=== PATIENT | female | born 1965 | race Caucasian/White ===

== ENCOUNTER 2024-05-13 13:35 | Outpatient (CLI) | payer BC, SELFPAY ==
--- NOTE | 2024-05-13 14:26 | ECG_ITS ---
Test Date: 2024-05-13 14:35:20 Measurements Intervals [place] Rate: 66 P: 40 SC: 181 QRS: 43 QRSD: 97 T: 44 QT: 383 QTc: 403 Interpretive Statements SINUS RHYTHM CANNOT R/O SEPTAL INFARCT, AGE INDETERMINATE BASELINE ARTIFACT- I, II, III, AVR, AVL, AVF ABNORMAL ECG No previous ECG available for comparison Electronically Signed On 05-13-2024 15:33:06 3RD GRADE TEACHER by Hipolito Cortes D.O.
[2024-05-13 14:42] LABS: Basophils Absolute Auto 0.1 K/mm3 (0.0-0.1); Basophils Percent Auto 0.7 % (0.2-1.2); Eosinophils Percent Auto 0.5 % (0-4.4); Hematocrit 39.3 % (37.0-47.0); Hemoglobin 12.8 g/dL (12.0-15.0); Immature Granulocyte Absolute 0.01 K/mm3 (0.00-0.031); Immature Granulocyte Percent A 0.1 % (0-0.5); Lymphocytes Absolute Auto 1.64 K/mm3 (0.9-3.2); Lymphocytes Percent Auto 21.5 % (18.3-44.2); Mean Corpuscular HGB Conc 32.6 g/dl (32-36); Mean Corpuscular Hemoglobin 29.4 pg (26-34); Mean Corpuscular Volume 90.1 fl (80-100); Mean Platelet Volume 9.8 fl (7.4-10.4); Monocytes Absolute Auto 0.5 K/mm3 (0.1-0.6); Monocytes Percent Auto 6.3 % (2.6-8.5); Neutrophils Absolute Auto 5.4 K/mm3 (1.3-6.7); Neutrophils Percent Auto 70.9 % (45.5-73.1); Platelet Count Result 251 k/mm3 (150-375); Red Blood Count 4.36 M/mm3 (4.2-5.4); Red Cell Distribution Width 12.7 % (11.5-14.5); White Blood Count 7.6 K/mm3 (4.5-10.0)
[2024-05-13 14:54] LABS: Alanine Aminotransferase 21 U/L (6-35); Albumin Level 4.3 g/dL (3.5-5.1); Alkaline Phosphatase 77 U/L (38-126); Anion Gap 10 mmol/L (4-12); Aspartate Amino Transferase 24 U/L (14-36); Bilirubin,Total 0.7 mg/dL (0.2-1.3); Blood Urea Nitrogen 25 mg/dL (7-17); Calcium 9.4 mg/dL (8.4-10.2); Carbon Dioxide 28 mmol/L (22-30); Chloride 102 mmol/L (98-107); Estimated Glomerular Filt Rate > 60; Glucose 105 mg/dL (65-110); Potassium 3.6 mmol/L (3.4-5.0); Sodium 140 mmol/L (137-145)
[2024-05-13 15:02] LABS: Partial Thromboplastin Time 26.8 Seconds (22.3-36.8); Prothrombin Time 13.2 Seconds (11.1-14.7)
--- OUTSIDE RECORDS SUMMARY | 2024-05-13 15:40 | XMS_ITS | Clinical Summary ---
Author Organization [facility] Address [address] [place] [address] Care Team Providers Care Student Development Advisor Name Role Phone Unavailable Primary Care Provider Unavailabl e Encounters Date Type Department Care Team Description 05/07/2024 External Device Data [facility] ABSTRACTION Provider, Abstract 04/09/2024 External Device Data [facility] ABSTRACTION Provider, Abstract 04/01/2024 External Device Data [facility] ABSTRACTION Provider, Abstract from Last 3 Months Social History Tobacco Use Types Packs/Day Years Used Date Smoking Tobacco: Never Assessed Comments Unknown Sex and Gender Information Value Date Recorded Sex Assigned at Not on file 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 Gender Identity Not on file Sexual Orientation Not on file Plan of Treatment Health Maintenance Due Date Last Done Comments Pre-Diabetes and Diabetes Screening 1966 HEPATITIS B VACCINES (1 of 3 - 19+ 3-dose series) 1985 CERVICAL CANCER SCREENING 1996 BREAST CANCER SCREENING 2006 COLORECTAL SCREENING 09/17/2011 Colorectal Cancer Screening 09/17/2011 FIT-DNA Q 3 years 09/17/2011 FIT/FOBT Q 1 year 09/17/2011 Flex Sig/CT Colonography Q 5 years 09/17/2011 ZOSTER VACCINE (1 of 2) 2016 INFLUENZA VACCINE (#1) 2023 DTAP/TDAP/TD VACCINES (2 - T d or Tdap) 06/03/2032 06/03/2022 PNEUMOCOCCAL VACCINE 0-64 YEARS Aged Out No longer eligible based on patient's age to complete this topic [place] [address] [place] [address] BLUE ACCESS
--- OUTSIDE RECORDS SUMMARY | 2024-05-13 15:40 | XMS_ITS | Encounter Summary ---
Author Organization [facility] Address [address] [place] [address] Care Team Providers Care Nuclear Chemistry Technician Name Role Phone Chris Kohler MD Primary Care Provider [phone] Reason for Visit * Reason Onset Date Comments MEDICATION REFILL 02/24/2024 Encounter Details Date Type Department Care Team (Late st Contact Info) Description 02/24/2024 Refill [facility] - Family Medicine [address] [phone] Hillary Mcclure, [employer] [address] [phone] MEDICATION REFILL Social History Tobacco Use Types Packs/Day Years Used Date Smoking Tobacco: Never Smokeless Tobacco: Never Alcohol Use Standard Drinks/Week Comments Yes 0 (1 standard drink = 0.6 oz pur e alcohol) PHQ-2 Answer Date Recorded Patient Health Questionnaire-2 Score 0 01/25/2024 Sex and Gender Information Value Date Recorded Sex Assigned at Not on file Gender Identity Not on file Sexual Orientation Not on file documented as of this encounter Plan of Treatment Not on file documented as of this encounter Visit Diagnoses Diagnosis Right arm pain Pain in limb Acute pain of right shoulder documented in this encounter Care Teams Nuclear Chemistry Technician Relationship Specialty Start Date End Date Chris Kohler MD [address] [phone] PCP - General Family Medicine 07/10/22 documented as of this encounter
--- OUTSIDE RECORDS SUMMARY | 2024-05-13 15:40 | XMS_ITS | Data Portability ---
Author Organization [employer] , [facility] Address [address] [place] [address] Assessment No assessment recorded. Plan of Treatment Reminders Order Date Submit Date Provider Last Modified By Organization Details Last Modified Time Details Appointments None recorded. Lab urinalysis, dipstick 2022 023 [email or web address] 0 [facility], [address] [place], [address], 3 09:34:59 keesha wet prep 2022 023 [email or web address] 0 [facility], [address] [place], [address], 3 14:14:18 HPV E6+E7 mRNA, qualitative PCR, cervix 2022 023 [facility], [address] [place], [address], 3 15:30:59 pap, LB 2022 023 [facility], [address] [facility], [place], [address], 3 17:34:33 Referral None recorded. Procedures None recorded. Surgeries None recorded. Imaging MAMMO, screening, digital, bilateral 2023 024 0 [facility] [address] [place] [address], [place], [address], 08:57:20 Medication Orders None recorded. Patient TargetsNo targets recorded. Patient Instructions Encounter Date Encounter Id Patient Instructions Last Modified By Organization Details Last Modified Time 06/14/2022 [id number] A healthy lifestyle: care instructions [email or web address] Not available 06/14/2022 10:58:17 calcium and vitamin D combination [email or web address] Not available 06/14/2022 10:58:17 depression (wome n only) [email or web address] Not available 06/14/2022 10:58:17 eating healthy foods: care instructions [id number] Not available 06/14/2022 10:58:17 exercise program : getting started [email or web address] Not available 06/14/2022 10:58:17 protect bone wit h calcium and vitamin D [email or web address] Not available 06/14/2022 10:58:17 osteoporosis education [email or web address] Not available 06/14/2022 10:58:17 breast self-exam : care instructions [id number] Not available 06/14/2022 10:58:17 02/12/2024 [id number] A healthy lifestyle: care instructions [email or web address] Not available 02/12/2024 13:46:44 calcium and vitamin D combination [email or web address] Not available 02/12/2024 13:46:44 depression (wome n only) [id number] Not available 02/12/2024 13:46:44 eating healthy foods: care instructions [email or web address] Not available 02/12/2024 13:46:44 exercise program : getting started [email or web address] Not available 02/12/2024 13:46:44 protect bone wit h calcium and vitamin D [id number] Not available 02/12/2024 13:46:44 osteoporosis education [email or web address] Not available 02/12/2024 13:46:44 breast self-exam : care instructions [email or web address] Not available 02/12/2024 13:46:44 Reason for Referral None Reported. Results Created Date Observation Date Name Description Value Unit Range Abnormal Flag Note LastModifiedBy Organization Detail LastModifiedTime 06/15/19 23 06/15/2022 HPV HIGH RISK HPV high risk Negati ve negati ve normal The HPV High Risk assay is inten ded for use as co-te sting with cytol ogy and not as a subst itute for regul ar cervi lio cytol ogy scree luh. This assay is not inten ded for use as a scree luh devic e for women under age 30 with skinny l cervi lio cytol ogy. Not Available [facility] [address] [place], [address], 06/15/2022 15:30:59 06/15/19 23 06/21/2022 THINP REP TIS PAP clinical information: normal None given Not Available [address] [place], [address], 06/21/2022 17:34:33 06/15/19 23 06/21/2022 THINP REP TIS PAP LMP: normal NONE GIVEN Not Available [address] [place], [address], 06/21/2022 17:34:33 06/15/19 23 06/21/2022 THINP REP TIS PAP prev. Pap: normal NONE GIVEN Not Available [address] [place], [address], 06/21/2022 17:34:33 06/15/19 23 06/21/2022 THINP REP TIS PAP prev. BX: normal NONE GIVEN Not Available [address] [place], [address], 06/21/2022 17:34:33 06/15/19 23 06/21/2022 THINP REP TIS PAP source: normal Cervi x Not Available [address] [place], [address], 06/21/2022 17:34:33 06/15/19 23 06/21/2022 THINP REP TIS PAP statement of adequacy: normal Satis facto ry for evalu ation . Endoc ervic al/tr ansfo rmati on zone compo nent prese nt. Age and/o r menst rual statu s not provi ded Not Available [address] [place], [address], 06/21/2022 17:34:33 06/15/19 23 06/21/2022 THINP REP TIS PAP interpretati on/result: normal Negat nanda for intra epith elial lesio n or jeanette manjarrez . Not Available [address], [place], [address], 06/21/2022 17:34:33 06/15/19 23 06/21/2022 THINP REP TIS PAP comment: normal This Pap test has been evalu ated with compu ter amanda tani techn ology . Not Available [address] , [place], [address], 06/21/2022 17:34:33 06/15/19 23 06/21/2022 THINP REP TIS PAP cytotechnolo gist: normal BKA, CT( CP) CT scree luh locat ion: [address] [place] [address] Not Available [address], [place], [address], 06/21/2022 17:34:33 06/15/19 23 06/21/2022 THINP REP TIS PAP comment EXPLA NATOR Y NOTE: The Pap is a scree luh test for cervi lio cance r. It is not a diagn ostic test and is subje ct to false negat nanda and false posit nanda resul ts. It is most relia ble when a satis facto ry sampl e, regul su obtai debra, is submi tted with relev ant clini lio findi ngs and histo ry, and when the Pap resul t is evalu ated along with histo jamshid and curre nt clini lio infor matio n. Not Available [address] , [place], [address], 06/21/2022 17:34:33 06/15/19 23 06/14/2022 VAGIN ITIS PANEL vaginitis panel Not Available [facility] [address] [place], [address], 06/30/2022 15:54:57 06/15/19 23 06/14/2022 keesha wet prep Hyphae Presen t Not Available [address], [address], 06/14/2022 14:13:54 06/15/19 23 06/14/2022 urina lysis , dipst ick Leukocytes Negati ve Not Available [address], [address], 06/12/2022 14:36:22 06/15/19 23 06/14/2022 urina lysis , dipst ick Nitrite negati ve Not Available [address], [address], 06/12/2022 14:36:22 06/15/19 23 06/14/2022 urina lysis , dipst ick Urobilinogen 1 Not Available [address], [address], 06/12/2022 14:36:22 06/15/19 23 06/14/2022 urina lysis , dipst ick Protein Negati ve Not Available [address], [address], 06/12/2022 14:36:22 06/15/19 23 06/14/2022 urina lysis , dipst ick pH 5.0 Not Available [address], [address], 06/12/2022 14:36:22 06/15/19 23 06/14/2022 urina lysis , dipst ick Blood Negati ve Not Available [address], [address], 06/12/2022 14:36:22 06/15/19 23 06/14/2022 urina lysis , dipst ick Specific [place] 1.005 Not Available [address], [address], 06/12/2022 14:36:22 06/15/19 23 06/14/2022 urina lysis , dipst ick Ketone Negati ve Not Available [address], [address], 06/12/2022 14:36:22 06/15/19 23 06/14/2022 urina lysis , dipst ick Bilirubin Negati ve Not Available [address], [address], 06/12/2022 14:36:22 06/15/19 23 06/14/2022 urina lysis , dipst ick Glucose Negati ve Not Available [address], [address], 06/12/2022 14:36:22 06/15/19 23 06/14/2022 urina lysis , dipst ick Appearance Clear Not Available [address], [address], 06/12/2022 14:36:22 06/15/19 23 06/14/2022 urina lysis , dipst ick Color Yellow Not Available [address], [address], 06/12/2022 14:36:22 Result Notes None recorded. Problems No Known Problems Procedures Surgical History Date Name Laterality Status Provider Name and Address Organization Details Recorded Time 01/18/20 Date of Last Colonoscopy completed Omaira Sanchez [facility] 02/12/2024 12:25:56 06/15/19 23 Date of Last Pap Smear completed Omaira Sanchez [facility] 02/12/2024 12:25:25 Imaging Results None recorded. Procedure Notes None recorded. Medical Equipment None Reported. Allergies Allergen ID Allergen Name Allergen Category Reaction Reaction Severity Criticality Documentation Date Start Date Code Code System Note Provider Name and Address Organization Details Recorded Time 523834 Product containin g penicilli n (product) medicatio n Not available Not available Not available 01/07/20212016 59742 8001 SNOMED Sever ity: Moder ate; Not Available Not Available Not Available Medications Name Sig Start Date Stop Date Status Note LastModified by Organization Details LastModified Time prednison e 10 mg tablet TAKE 3 TABLETS BY MOUTH ONCE DAILY FOR 4 DAYS AND 2 ONCE DAILY FOR 4 DAYS AND 1 ONCE DAILY FOR 4 DAYS 02/07 completed Not Available Not Available Not Available fluconazo le 150 mg tablet TAKE 1 TABLET BY MOUTH NOW THEN REPEAT IN 72 HOURS 02/07 completed Not Available Not Available Not Available Lotrisone 1 %-0.05 % topical cream Apply a small amount to vulvar area BID 05/26 completed Lotrison e 0.05%/1% Cream RxNorm: 596549 Allow Substitu tion: True Refill Denied: No Not Available Not Available Not Available clobetaso l 0.05 % topical cream Apply thin film to affected area bid 10/17 completed Clobetas ol Propiona te 0.05% Cream Allow Substitu tion: True Refill Denied: No Not Available Not Available Not Available sulfameth oxazole 800 mg-trimet hoprim 160 mg tablet TAKE 1 TABLET BY MOUTH TWICE DAILY FOR 3 DAYS 06/14 completed Not Available Not Available Not Available baclofen 10 mg tablet TAKE 1 TABLET BY MOUTH THREE TIMES DAILY MAY CAUSE DROWSINE SS 02/11 completed Not Available Not Available Not Available clobetaso l 0.05 % topical foam 06/14 completed Clobetas ol Propiona te Allow Substitu tion: True Refill Denied: No Refill DateOccu rred: 08/24/19 17 Not Available Not Available Not Available clobetaso l 0.05 % topical ointment 06/14 completed Clobetas ol Propiona te Allow Substitu tion: True Refill Denied: No Refill DateOccu rred: 08/24/19 17 Not Available Not Available Not Available methylpre dnisolone 4 mg tablets in a dose pack TAKE BY MOUTH DIRECTED ON INSIDE OF PACKAGE 02/11 completed Not Available Not Available Not Available clobetaso l 0.05 % lotion 07/19 completed Clobetas ol Propiona te Allow Substitu tion: True Refill Denied: No Refill DateOccu rred: 08/24/19 17 Not Available Not Available Not Available estradiol 08/23 completed Estradio l Allow Substitu tion: True Refill Denied: No Refill Note: didn't get medicati on Refill DateOccu rred: 08/24/19 17 Not Available Not Available Not Available Provera 08/23 completed Provera Allow Substitu tion: True Refill Denied: No Refill Note: Didn't take it Refill DateOccu rred: 08/24/19 17 Not Available Not Available Not Available Duavee 08/23 completed Duavee Allow Substitu tion: True Refill Denied: No Refill Note: entered wrong med Refill DateOccu rred: 08/24/19 17 Not Available Not Available Not Available Vitals Date Recorded Body height Body mass index (BMI) Body weight Systolic blood pressure Diastolic blood pressure Provider Name and Address Organization Details Last Updated DateTime 06/14/2022 170.18 cm 26.9 kg/m2 93444.89 g 122 mm[Hg] 80 mm[Hg] Nissa Mcdonald [facility] 3 09:40:13 Date Recorded Body weight Body mass index (BMI) Body height Systolic blood pressure Diastolic blood pressure Provider Name and Address Organization Details Last Updated DateTime 02/12/2024 10472.6 3 g 28.2 kg/m2 170.18 cm 127 mm[Hg] 70 mm[Hg] Omaira Sanchez [facility] 4 12:29:11 Social History Question Answer Notes LastModified by Organizat ion Details LastModified Time Tobacco Smoking Status Never Smoker Omaira Sampsonuog null, [facility] 02/12/2024 12:24:20 What Is Your Level Of Alcohol Consumption? Occasional Information not available 02/12/2024 If You Are , What Was Your Level Of Alcohol Consumption Prior To ? None Information not available 02/12/2024 How Many Years Have You Consumed Alcohol? 10 Information not available 02/12/2024 Are You Blind Or Do You Have Difficulty Seeing? No Information not available 02/12/2024 Are You Currently Employed? Yes Information not available 02/12/2024 Are You Deaf Or Do You Have Serious Difficulty Hearing? No Information not available 02/12/2024 What Type Of Diet Are You Following? REGULAR Information not available 02/12/2024 How Many Children Do You Have? 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 Information not available 06/12/2022 Are You Sexually Active? Yes [email or web address] Information not available 06/12/2022 Do You Use Any Illicit Or Recreational Drugs? No Information not available 02/12/2024 Sex: Unknown Functional Status Question Answer Note LastModified by Organization D etails LastModified Time What is your exercise level? Moderate Information not available 02/12/2024 Mental Status None recorded. Family History Relationship Description Onset Age of this Age Resolved Age Notes LastModified by Organization Details LastModified Time Father No current problems or disability [email or web address] Not available 05/18 09:40:58 Mother No current problems or disability [email or web address] Not available 05/18 09:40:58 Medical History Condition Response Other Cancer N High Blood Pressure N Colon Cancer N Cytomegalovirus N Hyperthyroidism N Breast Cancer N Herpes (HSV) N Blood Transfusion N MRSA N Lung Cancer N Hypothyroidism N Depression N Incontinence N Panic Attacks N Neurological Disorder N Deep Vein Thrombosis N Anxiety Disorder N Autoimmune disease N Arthritis N Tuberculosis/Positive PPD N Shingles N Polycystic Ovarian Syndrome N Infertility N Cervical Cancer N Chlamydia N Hematuria N Stroke N Varicosities N Crohn's Disease N Seasonal allergies N Alzheimer's/Dementia N COPD/Emphysema N HPV/Genital Warts N Endometriosis N IBS (Irritable Bowel Syndrome) N History of Abnormal Pap N High Cholesterol N Liver Disease N Kidney Infection N Fibromyalgia N Ulcer N Kidney Disease N HIV N Gallbladder disease N Sickle Cell Disease/Trait N Von Willebrand disease N ADD/ADHD N Eating Disorder N Anemia N Diabetes Mellitus (non-insulin dependent ) N Ovarian Problems N Multiple Sclerosis N Gonorrhea N Frequent Urinary Tract infections N Osteopenia N Headaches/migraines N GERD (reflux) N Ovarian Cancer N Diabetes (insulin dependent) N Seizures/Epilepsy N Breast Problems N Fibroids N Heart Attack N Asthma N Lupus N Endometrial Cancer N Rubella N Blood Clotting Disorder N Bipolar Disorder N Diabetes Mellitus (during ) N Ulcerative Colitis N Hepatitis N Heart Disease N Pulmonary Embolism N RPR N Chicken Pox N Osteoporosis N Gynecological History Statement/Question Response Flow Moderate Date of last HPV 06/14/2022 Date of LMP 01/17/2011 Duration of Flow (days) 6 Most Recent Mammogram Current Control Method Menopause Age at Menarche 15 If Post Menopausal, Age at Menopause 51 Date of Last Colonoscopy 01/17/2023 Frequency of Cycle (Q days) 30 Date of Last Pap Smear 06/14/2022 Obstetrics History GPAL:G 4 P 3 0 1 3 Type Value Full Term 3 Spontaneous 1 Living 3 Total 4 Past Encounters Encounter ID Performer Location Encounter Start Date Encounter Closed Date Diagnosis/Indication Diagnosis SNOMED-CT Code Diagnosis ICD10 Code Diagnosis Note [id number] ANNY Wisdom [address] [address] 06/14/2022 09:24:21 06/14/2022 10:09:26 Dysuria 37715650 R30.0 Urine dip negative Gynecologi c examination 99057208 Z01.419 56y.o. here for annual exam. - Pap today , discussed natural course of HPV infection, no new exposures. - Routine labs done with PCP - Mammo encouraged to have performed - Colonoscop y Cologard - DEXA at age 66 - RTO for annual or PRN Screening for malignant neoplasm of cervix 562885722 Z12.4 ASCCP guidelines reviewed with pt. Pap collected and sent. Further POC pending lab result review. Pt states understand ing of POC. Screening for osteoporosis 709434014 Z13.820 Screening mammography of bilateral breasts 1432524682 38132 Z12.31 Client advised to perform self-breas t exams and report any changes. Yeast detected 970528738 R89.5 Proceed with taking 2nd tablet rx'd by Urgent Care - Reviewed vulvar hygiene: avoid tight or moist clothing, soaps, Vagisil and other wipes, cotton underwear only and sleep without, unscented detergent - Discussed potential for Rephresh gel if neg test - Start probiotic - RTO for annual or as needed [id number] ANNY Wisdom [facility] [address] [place] [address] 02/12/2024 12:09:55 02/12/2024 12:45:29 Gynecologic examination 37849159 Z01.419 58y.o. here for annual exam.- Pap today , discussed natural course of HPV infection, no new exposures. - Routine labs done with PCP- Mammo- Colonoscop y Cologard- DEXA at age 66- RTO for annual or PRN Screening for osteoporosis 558926949 Z13.820 Depression screening 171 918312 Z13.31 see screening intake tool Screening mammography of bilateral breasts 1592466546 27552 Z12.31 Client advised to perform self-breas t exams and report any changes. Midline cystocele 099436 [address] N81.[address] Maury Patterson, Urologist for consult Health Concerns Section Related Observation LastModified by Organization Detai ls LastModified Time None Recorded Concern Status LastModified by Organization Details LastModified Time None Recorded Advance Directives Directive None Recorded Payers Encounter Date Sequence Insurance Name Policy Number Policy Mendez Covered Member ID Mendez Member ID Guarantor Name 06/14/2022 1 [employer] 105 Sandi Odonnell [id number] Sandi Odonnell 02/12/2024 1 [place] 105 Sandi Odonnell [id number] Sandi Odonnell Notes Date Note Type Note Provider Name and Address Organization Details Recorded Time 06/14/2022 text/html Annual GYNReport ed bypatient.Menstrua l cycle:Normal menses Urinary symptoms:No hematuria; No incontinence Vulva:No genital lesion Vagina:Normal vaginal discharge;Vaginal itching Breast:No breast pain; No breast lump; No nipple discharge Sexual complaints:No sexual complaints; No pain during intercourse; Normal libido Menopausal Symptoms:No menopausal symptoms; Normal vaginal lubrication Psychological symptoms:No depression; No anxiety; No PMDD Sandi is here for her AEX, as well as a f/u to her recent ER and Urgent Care visit. She presented to ER. On 06/03/22 she was seen in ER and rx'd Bactrim DS x 3 days for a UTI. She then was seen in Urgent Care 4 days ago and tx'd for a yeast infection with Fluconazole. Her dysuria has resolved, however, she still feels vaginal irritation. She denies odor/discharge. she is due for her mammogram. She in the process of Cologard ANNY Wisdom [address] [place], [address], [facility] 06/14/2022 14:15:22 02/12/2024 text/html Annual GYNReport ed bypatient.Urinary symptoms:No hematuria; No incontinence Vulva:No genital lesion Vagina:Normal vaginal discharge Breast:No breast pain; No breast lump; No nipple discharge Sexual complaints:No sexual complaints; No pain during intercourse; Normal libido Menopausal Symptoms:No menopausal symptoms; Normal vaginal lubrication Psychological symptoms:No depression; No anxiety; No PMDD Sandi is here for her AEXHer last pap 06/14/22Her last mammogram was: neverShe is UTD on CologardShe currently c/o the possibility of a cystocele ANNY Wisdom [address] [facility], [place], [address], [facility] 02/12/2024 13:50:32 OBGyn Episode No OBEpisode recorded.
--- OUTSIDE RECORDS SUMMARY | 2024-05-13 15:40 | XMS_ITS | Clinical Summary ---
Author Organization [facility] Address [address] [facility] [place] [address] Care Team Providers Care Assistant Produce Manager Name Role Phone Chris Kohler MD Primary Care Provider [phone] Source Comments [facility],non-owned Affiliates and Associated Physician Practices is amultiple site organization consisting of ambulatory clinics and hospital sitesin [place], [place], [place] and [place]. This disclosure is being madepursuant to the Care Everywhere program and may not contain all information available regarding this patient. Last updated 17.[facility] Allergies Active Allergy Reactions Criticality Noted Date Comments Penicillins Urticaria,Rash Medium 04/30/2020 Medications * Be aware that medications may not be up to date on this document. Alwaysverify current medications with the patient. Medication Sig Dispensed Refills Start Date End Date Status methylPREDNISolone (Medrol Dosepak) 4 MG tabletIndications:Ri ght arm pain,Acute pain of right shoulder Take by mouth as directed Take as directed by mouth per package instructions. 21 tablet 01/25/2024 Active baclofen (Lioresal) 10 MG tabletIndications:Ri ght arm pain,Acute pain of right shoulder Take 1 (one) tablet by mouth 3 times daily May cause drowsiness. 30 tablet 02/25/2024 Active Active Problems Problem Noted Date Diagnosed Date Hypothyroidism 01/08/2021 Seasonal allergies 08/08/2017 Encounters Date Type Department Care Team Description 02/24/2024 Refill [facility] Family Medicine [address] [facility], [facility] [address] [place] [phone] Hillary Mcclure, CASTER HELPER-BATTERY TESTER AND REPAIRER MEDICATION REFILL 02/24/2024 Refill [facility] Family [address], [address] [place] [phone] Hillary Mcclure, CASTER HELPER-BATTERY TESTER AND REPAIRER MEDICATION REFILL from Last 3 Months Immunizations Name Administration Dates Next Due TDAP, HISTORIC VACCINE 06/03/2022 Family History Medical History Relation Name Comments None Known Father Thyroid Disease Mother Relation Name Status Comments Father Alive Mother Alive Social History Tobacco Use Types Packs/Day Years Used Date Smoking Tobacco: Never Smokeless Tobacco: Never Tobacco Cessation:Counseling Given: Not Answered Alcohol Use Standard Drinks/Week Comments Yes 0 (1 standard drink = 0.6 oz pur e alcohol) PHQ-2 Answer Date Recorded Patient Health Questionnaire-2 Score 0 01/25/2024 Sex and Gender Information Value Date Recorded Sex Assigned at Not on file Gender Identity Not on file Sexual Orientation Not on file Last Filed Vital Signs Vital Sign Reading Time Taken Comments Blood Pressure 123/82 01/25/2024 9:34 AM DIRECTOR OF ENROLLMENT Pulse 66 01/25/2024 9:34 AM DIRECTOR OF ENROLLMENT Temperature 36.7 C (98.1 F) 04/30/2020 9:21 AM DIRECTOR OF ENROLLMENT Respiratory Rate 12 06/13/2022 8:38 AM CDT Oxygen Saturation 99% 01/25/2024 9:34 AM DIRECTOR OF ENROLLMENT Inhaled Oxygen Concentration - - Weight 83.8 kg (184 lb 12.8 oz) 01/25/2024 9:34 AM DIRECTOR OF ENROLLMENT Height 170.2 cm (5' 7 ) 06/13/2022 8:38 AM CDT Body Mass Index 28.94 06/13/2022 8:38 AM CDT Plan of Treatment Health Maintenance Due Date Last Done Comments COLON MONITORING 1966 COLONOSCOPY - COLON CA SCREENING 1966 CT COLONOGRAPHY - COLON CA SCREENING 1966 FIT - COLON CA SCREENING 1966 FLEX SIG - COLON CA SCREENING 1966 MAMMOGRAM 1966 HIV SCREENING 1981 HEPATITIS C SCREENING 09/11/1984 HEPATITIS B VACCINE (1 of 3 - 19+ 3-dose series) 1985 PNEUMOCOCCAL VACCINE 50+ (1 of 1 - PCV) 2016 ZOSTER VACCINE (1 of 2) 2016 COVID-19 VACCINE ( - season) 2023 DEPRESSION SCREENING 03/19/2024 06/19/2023, 06/14/19 23 INFLUENZA VACCINE (#1) 2024 Postp oned from 11/18/2023 (Patient Directed) PAP SMEAR 06/14/2025 06/14/2022 (Done Outside Per Report), 01/17/2018 (Done Outside Per Patient) COLOGUARD (AGES 45-75) - COLON CA SCREENING 06/20/2025 06/20/2022 Colorectal Cancer Screening 06/20/2025 LIPID TESTING 06/14/2027 06/13/2022 DTAP/TDAP/TD VACCINES (2 - Td or Tdap) 06/03/2032 06/03/2022 HIB VACCINE Aged Out No longer eligi ble based on patient's age to complete this topic HPV VACCINE Aged Out No longer eligi ble based on patient's age to complete this topic MENINGOCOCCAL (Group B) VACCINE Aged Out No longer eligible b ased on patient's age to complete this topic MENINGOCOCCAL VACCINE Aged Out No allison felix eligible based on patient's age to complete this topic Procedures Procedure Name Priority Date/Time Associated Diagnosis Comments COLOGUARD TEST Routine 06/20/2022 6:10 AM CDT Screening for malignant neoplasm of colon LIPID PROFILE Routine 06/13/2022 9:01 AM CDT Well adult exam from Last 3 Months or Most Recently Relevant to Health Maintenance Results * [id number] COLOGUARD TEST *Associate with Z12.11 OR Z12.12 Dx Codes* (06/20/2022 6:10 AM CDT) Cologuard Negative Negative [facility] Comment: NEGATIVE TEST RESULT. A negative Cologuard result indicates a low likelihood that a colorectal cancer (CRC) or advanced adenoma (adenomatous polyps with more advanced pre-malignant features) is present. The chance that a person with a negative Cologuard test has a colorectal cancer is less than 1 in 1500 (negative predictive value >99.9%) or has an advanced adenoma is less than 5.3% (negative predictive value 94.7%). These data are based on a prospective cross-sectional study of 10,000 individuals at average risk for colorectal cancer who were screened with both Cologuard and colonoscopy. (Luis Alberto Tsai al, N Engl J Med 2014;370(14):0679-6974) The normal value (reference range) for this assay is negative. COLOGUARD RE-SCREENING RECOMMENDATION: Periodic colorectal cancer screening is an important part of preventive healthcare for asymptomatic individuals at average risk for colorectal cancer. Following a negative Cologuard result, the [place] Cancer Society and U.S. Multi-Society Task Force screening guidelines recommend a Cologuard re-screening interval of 3 years. References: [place] Cancer Society Guideline for Colorectal Cancer Screening: https://www.cancer.org/cancer/kzruc-xytbqi-oaubuw/rfynaqhgm-ejbjlhxkz-hvtwpkv/ acs-recommendations.html.; Johny DK, Nirmal PHAM, Manuela ElmoreK, Colorectal Cancer Screening: Recommendations for Physicians and Patients from the U.S. Multi-Society Task Force on Colorectal Cancer Screening , Am J Gastroenterology 2017; 112:8662-7747. TEST DESCRIPTION: Composite algorithmic analysis of stool DNA-biomarkers with hemoglobin immunoassay. Quantitative values of individual biomarkers are not reportable and are not associated with individual biomarker result reference ranges. Cologuard is intended for colorectal cancer screening of adults of either sex, 45 years or older, who are at average-risk for colorectal cancer (CRC). Cologuard has been approved for use by the U.S. FDA. The performance of Cologuard was established in a cross sectional study of average-risk adults aged 50-84. Cologuard performance in patients ages 45 to 49 years was estimated by sub-group analysis of near-age groups. Colonoscopies performed for a positive result may find as the most clinically significant lesion: colorectal cancer [4.0%], advanced adenoma (including sessile serrated polyps greater than or equal to 1cm diameter) [20%] or non- advanced adenoma [31%]; or no colorectal neoplasia [45%]. These estimates are derived from a prospective cross-sectional screening study of 10,000 individuals at average risk for colorectal cancer who were screened with both Cologuard and colonoscopy. (Luis Alberto Reyes, N Engl J Med 2014;370(14):9550-3269.) Cologuard may produce a false negative or false positive result (no colorectal cancer or precancerous polyp present at colonoscopy follow up). A negative Cologuard test result does not guarantee the absence of CRC or advanced adenoma (pre-cancer). The current Cologuard screening interval is every 3 years. ([place] Cancer Society and U.S. Multi-Society Task Force). Cologuard performance data in a 10,000 patient pivotal study using colonoscopy as the reference method can be accessed at the following location: www.[employer]/results. Additional description of the Cologuard test process, warnings and precautions can be found at www.[employer].com. Stool STOOL SPECIMEN / Unknown 06/20/2022 6:10 AM CDT 06/21/2022 4:07 PM CDT Hillary Mcclure CASTER HELPER-BATTERY TESTER AND REPAIRER LA B - CHEMISTRY ORDERABLES Performing Organization Address City/State/[facility] Co de Phone Number [facility] [address] [place] [address] [facility] [address] [place] [address] * LIPID PROFILE (06/13/2022 9:01 AM CDT) Cholesterol 176 <200 mg/dL [facility] HDL Cholesterol 64 > OR = 50 mg/dL [facility] Triglycerides 90 <150 mg/dL [facility] LDL Calculated 94 mg/dL (calc) [facility] Comment: Reference range: <100 Desirable range <100 mg/dL for primary prevention; <70 mg/dL for patients with CHD or diabetic patients with > or = 2 CHD risk factors. LDL-C is now calculated using the Nestor-Nikita calculation, which is a validated novel method providing better accuracy than the Friedewald equation in the estimation of LDL-C. Nestor JACOBS et al. CHRISTOPHER. 2013;310(19): 5908-8339 (http://education.[employer].com/faq/GLE197) CHOL/HDLC RATIO 2.8 <5.0 (calc) [facility] Non HDL Cholesterol 112 <130 mg/dL (calc) [facility] Comment: For patients with diabetes plus 1 major ASCVD risk factor, treating to a non-HDL-C goal of <100 mg/dL (LDL-C of <70 mg/dL) is considered a therapeutic option. Test Performed at: [facility] [address] [place] [address] VIPUL GARDNER MD Blood BLOOD SPECIMEN / Unknown 06/13/2022 9:01 AM CDT 06/13/2022 9:01 AM CDT Hillary Emmanuelle Mcclure CASTER HELPER-BATTERY TESTER AND REPAIRER LA B - CHEMISTRY ORDERABLES [facility] [address] [place] [address] from Last 3 Months or Most Recently Relevant to Health Maintenance Care Teams Assistant Produce Manager Relationship Specialty Start Date End Date Chris Kohler MD [address] [phone] PCP - General Family Medicine 07/10/22
--- OUTSIDE RECORDS SUMMARY | 2024-05-13 15:40 | XMS_ITS | Data Portability ---
Author Organization [place] [facility], [facility] Address [address] [place] [phone] Assessment No assessment recorded. Plan of Treatment Reminders Order Date Submit Date Provider Last Modified By Organization Details Last Modified Time Details Appointments None recorded. Lab urinalysis, dipstick, auto 2022 023 [facility], [address] [place] [address], [phone], 17:01:37 culture, urine + sensitivity [address] Registration Dept[address] [place] [address], [address], 09:28:52 Referral None recorded. Procedures None recorded. Surgeries None recorded. Imaging None recorded. Medication Orders fluconazole 150 mg tablet 2022 023 [facility] [address] [place], [address], 17:00:39 Patient TargetsNo targets recorded. Patient InstructionsNo instructions recorded. Reason for Referral None Reported. Results Created Date Observation Date Name Description Value Unit Range Abnormal Flag Note LastModifiedBy Organization Detail LastModifiedTime 03/22/19 22 03/22/2021 rapid SARS CoV 2 Ag, QL IA, respi rator y speci men covid-19 RNA Positi ve negati ve abnormal Not Available Not Available 03/22/2021 11:59:16 06/12/19 23 06/11/2022 urina lysis , dipst ick, auto Leukocytes (reference Rage: Negative roger/mcg) Negati ve Not Available [address], [address], 06/11/2022 16:36:26 06/12/19 23 06/11/2022 urina lysis , dipst ick, auto Nitrite (reference rage: Negative mg/dL) negati ve Not Available [address], [address], 06/11/2022 16:36:26 06/12/19 23 06/11/2022 urina lysis , dipst ick, auto Urobilinogen (reference range: 0.2-1 ng/dL) 0.2 Not Available [address], [address], 06/11/2022 16:36:26 06/12/19 23 06/11/2022 urina lysis , dipst ick, auto Protein (reference range: negative mg/dL): Negati ve Not Available [address], [address], 06/11/2022 16:36:26 06/12/19 23 06/11/2022 urina lysis , dipst ick, auto pH (reference range: 5-7) 5.5 Not Available [address], [address], 06/11/2022 16:36:26 06/12/19 23 06/11/2022 urina lysis , dipst ick, auto Blood (reference range: negative Negati ve Not Available [address], [address], 06/11/2022 16:36:26 06/12/19 23 06/11/2022 urina lysis , dipst ick, auto Specific [place] (reference range 1.005-1.030) 1.025 Not Available [address], [address], 06/11/2022 16:36:26 06/12/19 23 06/11/2022 urina lysis , dipst ick, auto Ketone (reference range: negative mg/dL) Negati ve Not Available [address], [address], 06/11/2022 16:36:26 06/12/19 23 06/11/2022 urina lysis , dipst ick, auto Bilirubin (reference range: negative mg/dL) Negati ve Not Available [address], [address], 06/11/2022 16:36:26 06/12/19 23 06/11/2022 urina lysis , dipst ick, auto Glucose (reference range: negative mg/dL) Negati ve Not Available [address], [address], 06/11/2022 16:36:26 06/12/19 23 06/11/2022 urina lysis , dipst ick, auto Appearance Slight ly Cloudy Not Available [address], [address], 06/11/2022 16:36:26 06/12/19 23 06/11/2022 urina lysis , dipst ick, auto Color Yellow Not Available [address], [address], 06/11/2022 16:36:26 Result Notes None recorded. Problems Name Problem SNOMED Code Status Onset Date Resolution Date Notes Provider Name and Address Organization Details Recorded Time Dysuria 03361515 [facility] 16:36:28 Candidiasis of vagina 65149346 Active 2022 Deidre Bay Iyer RN TRANSPLANT [address] [place] [address], [address] , [facility] 3 16:57:04 Menopausal syndrome 060643956 Active Not Available [facility] 3 17:07:27 Seasonal allergy 714139176 Active 2017 Not Available [facility] 3 17:07:27 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 Medical Equipment None Reported. Allergies Allergen ID Allergen Name Allergen Category Reaction Reaction Severity Criticality Documentation Date Start Date Code Code System Note Provider Name and Address Organization Details Recorded Time 234919 Product containin g penicilli n (product) medicatio n rash Not available Not available 03/26/2022 93704 8001 SNOMED Not Available [facility] 3 17:08:22 Medications Name Sig Start Date Stop Date Status Note LastModified by Organization Details LastModified Time prednisone 10 mg tablet TAKE 4 TABLETS BY MOUTH EVERY DAY FOR 3 DAYS THEN 3 TABLETS EVERY DAY FOR 3 DAYS THEN 2 TABLETS EVERY DAY FOR 3 DAYS THEN 1 TABLET EVERY DAY 01/08 completed Not Available Not Available Not Available azithromyci n 250 mg tablet TAKE 2 TABLETS (500 MG) BY ORAL ROUTE ONCE DAILY FOR 1 DAY THEN 1 TABLET (250 MG) BY ORAL ROUTE ONCE DAILY FOR 4 DAYS 06/11 completed Not Available Not Available Not Available fluconazole 150 mg tablet Take 1 tablet every 72 hours by oral route. 2022 active Not Available Not Available Not Avai lable hydrocodone 5 mg-acetamin ophen 325 mg tablet TAKE 1 TABLET BY MOUTH EVERY 4 TO 6 HOURS NEEDED FOR POSTOPERA TIVE PAIN 01/08 completed Not Available Not Available Not Available Provera 2.5 mg tablet Take 1 tablet every day by oral route. 06/11 completed Not Available Not Available Not Available clobetasol 0.05 % topical cream apply a thin layer to area once or twice a week 12/04 completed Not Available Not Available Not Available Kenalog 40 mg/mL suspension for injection Take 2 mL by injection route. 01/07 completed Not Available Not Available Not Available methocarbam ol 750 mg tablet TK 1 T PO Q 6 H FOR 10 DAYS PRN 12/04 completed Not Available Not Available Not Available baclofen 10 mg tablet TAKE 1 (ONE) TABLET BY MOUTH 3 TIMES DAILY MAY CAUSE DROWSINES S. 01/08 completed Not Available Not Available Not Available levothyroxi ne 50 mcg tablet TAKE 1 TABLET BY MOUTH EVERY DAY 01/08 completed Not Available Not Available Not Available cephalexin 500 mg capsule 12/04 completed Not Available Not Available Not Available clotrimazol e-betametha sone 1 %-0.05 % topical cream APPLY A SMALL AMOUNT TO VULVAR AREA BID UTD 06/14 completed Not Available Not Available Not Available estradiol 0.5 mg tablet Take 1 tablet every day by oral route. 06/11 completed Not Available Not Available Not Available methylpredn isolone 4 mg tablets in a dose pack TAKE DIRECTED ON PACKAGE WITH FOOD 03/22 completed Not Available Not Available Not Available finasteride 5 mg tablet 01/08 completed Not Available Not Available Not Available naproxen 500 mg tablet Take 1 tablet twice a day by oral route for 30 days. active Not Available Not Available No t Available progesteron e micronized 100 mg capsule TAKE 1 CAPSULE BY MOUTH AT BEDTIME 01/08 completed Not Available Not Available Not Available Duavee 0.45 mg-20 mg tablet Take 1 tablet every day by oral route. 06/11 completed Not Available Not Available Not Available Vitals Date Recorded Body mass index (BMI) Body height Oxygen saturation Oxygen saturation in Arterial blood by Pulse oximetry Heart rate Respiratory rate Body temperature Body weight Systolic blood pressure Diastolic blood pressure Provider Name and Address Organization Details Last Updated DateTime 1 29.4 kg/m2 167.64 cm 98 % 98 % 80 /min 16 /min 97.7 [degF] 97004.8 1 g 114 mm[Hg] 68 mm[Hg] Not Available [facility] 3 23:44:59 Date Recorded Body mass index (BMI) Body height Oxygen saturation Oxygen saturation in Arterial blood by Pulse oximetry Pain severity - 0-10 verbal numeric rating [Score] - Reported Heart rate Body temperature Body weight Systolic blood pressure Diastolic blood pressure Provider Name and Address Organization Details Last Updated DateTime 2 29.7 kg/m2 167.64 cm 97 % 97 % 0 64 /min 98.9 [degF] 00478.2 8 g 98 mm[Hg] 60 mm[Hg] Not Available [facility] 3 23:44:59 Date Recorded Body height Body mass index (BMI) Body weight Pain severity - 0-10 verbal numeric rating [Score] - Reported Respiratory rate Body temperature Heart rate Oxygen saturation Oxygen saturation in Arterial blood by Pulse oximetry Systolic blood pressure Diastolic blood pressure Provider Name and Address Organization Details Last Updated DateTime 3 172.72 cm 25.1 kg/m2 80293.7 4 g 5 18 /min 98.2 [degF] 64 /min 99 % 99 % 120 mm[Hg] 66 mm[Hg] Kaitlynn Johnson [facility] 3 16:42:15 Social History Question Answer Notes LastModified by Organizat ion Details LastModified Time Tobacco Smoking Status Never Smoker Not Available [facility] 03/26/2022 23:44:13 In The 14 Days Before Symptom Onset, Have You Had Close Contact With A Laboratory-confirm ed COVID-19 While That Case Was Ill? No [id number] Information not available 03/26/2022 In The 14 Days Before Symptom Onset, Have You Had Close Contact With A Person Who Is Under Investigation For COVID-19 While That Person Was Ill? No [id number] Information not available 03/26/2022 What Was The Date Of Your Most Recent Tobacco Screening? 01/08/2021 [id number] Information not available 03/26/2022 Have You Recently Traveled Abroad? No [id number] Information not available 03/26/2022 Do You Or Have You Ever Used Any Other Forms Of Tobacco Or Nicotine? No [id number] Information not available 03/26/2022 Sex: Unknown Functional Status None recorded. Mental Status None recorded. Family History Nothing Reported Notes:parents are 86 and 87. Medical History No medical history recorded. Gynecological HistoryNo gynecological history recorded. Obstetrics History GPAL:G 0 P 0 0 0 0 Past Encounters Encounter ID Performer Location Encounter Start Date Encounter Closed Date Diagnosis/Indication Diagnosis SNOMED-CT Code Diagnosis ICD10 Code Diagnosis Note [id number] [address] [address] 01/08/2021 00:00:00 01/08/2021 10:04:[id number] [address] 03/22/2021 00:00:00 03/22/2021 12:16:11 [id number] Deidre Iyer RN TRANSPLANT [address] [address] 06/11/2022 16:18:13 06/12/2022 06:59:30 Dysuria 65668827 R30.0 UA negativeSy mptoms questionab le for UTIWill send for culture and if C&S shows bacteria will treat based on susceptibi lity report Candidiasis of vagina 72 713010 B37.31 patient was instructed to avoid sexual contact over the next few days and to take prescribed medication as directed.. .. patient was instructed to report or return for medical attention if she develops itching of the vulva or labia, any redness burning or soreness to the external genitalia, foamy or greenish yellow discharge, bed order, blood-ting ed vaginal discharge, pain with intercours e or urination, increased abdominal or pelvic pain, and fever or any other signs of infection. . patient instructed to stop bubble pass, douches, fem in hygiene sprays powders or rinses and consider using other less restrictiv e underwear. Health Concerns Section Related Observation LastModified by Organization Detai ls LastModified Time None Recorded Concern Status LastModified by Organization Details LastModified Time None Recorded Advance Directives Directive None Recorded Payers Encounter Date Sequence Insurance Name Policy Number Policy Emndez Covered Member ID Mendez Member ID Guarantor Name 06/11/2022 1 [place] ([place]) 105 Sandi Odonnell [id number] Sandi Odonnell Notes Date Note Type Note Provider Name and Address Organization Details Recorded Time 06/11/2022 text/html 56 y/o female presents to office with c/o burning when urinating, and itching. Symptoms have been present for about a week. Pt was rx bactrim but did not help. Denies flank pain, urgency, fevers. Deidre Iyer RN TRANSPLANT [address] [place] [address], [address], [facility] 06/11/2022 17:02:52 OBGyn Episode No OBEpisode recorded.
--- OUTSIDE RECORDS SUMMARY | 2024-05-13 15:40 | XMS_ITS | Encounter Summary ---
Author Organization [facility] Address [address] [facility] Attn: [place] [address] Care Team Providers Care Computer Programmer Chief Name Role Phone Unavailable Primary Care Provider Unavailabl e Encounter Details Date Type Department Care Team (Late st Contact Info) Description 10/27/1998 Outpatient Historical Alexis Price MD [address] [facility] [address] [place] [phone] Social History Tobacco Use Types Packs/Day Years Used Date Smoking Tobacco: Never Assessed Comments Unknown Sex and Gender Information Value Date Recorded Sex Assigned at Not on file Legal Sex Female 4:00 AM BAND TACKER Gender Identity Not on file Sexual Orientation Not on file documented as of this encounter Plan of Treatment Not on file documented as of this encounter Visit Diagnoses Not on filedocumented in this encounter
--- OUTSIDE RECORDS SUMMARY | 2024-05-13 15:40 | XMS_ITS | Patient Health Summary ---
Author Organization [facility] Address [address] [place] [address] Care Team Providers Care Paint Line Production Supervisor Name Role Phone Chris Kohler MD Primary Care Provider [phone] Note from [facility],non-owned Affiliates and Associated Physician Practices is amultiple site organization consisting of ambulatory clinics and hospital sitesin [place], [place], [place] and [place]. This disclosure is being madepursuant to the Care Everywhere program and may not contain all informatio navailable regarding this patient. Last updated 17.[facility] Allergies * Penicillins(Urticaria,Rash) -Medium Criticality Medications * Be aware that medications may not be up to date on this document. Alwaysverify current medications with the patient. * methylPREDNISolone (Medrol Dosepak) 4 MG tablet(Started 01/25/2024) Take by mouth as directed Take as directed by mouth per package instructions. * baclofen (Lioresal) 10 MG tablet(Started 02/25/2024) Take 1 (one) tablet by mouth 3 times daily May cause drowsiness. Active Problems Problem Noted Date Diagnosed Date Hypothyroidism 01/08/2021 Seasonal allergies 08/08/2017 Immunizations * TDAP, HISTORIC VACCINE(Given 06/03/2022) Social History Tobacco Use Types Packs/Day Years [...] Comments Blood Pressure 123/82 01/25/2024 9:34 AM HR RECEPTIONIST Pulse 66 01/25/2024 9:34 AM HR RECEPTIONIST Temperature 36.7 C (98.1 F) 04/30/2020 9:21 AM HR RECEPTIONIST Respiratory Rate 12 06/13/2022 8:38 AM CDT Oxygen Saturation 99% 01/25/2024 9:34 AM HR RECEPTIONIST Inhaled Oxygen Concentration - - Weight 83.8 kg (184 lb 12.8 oz) 01/25/2024 9:34 AM HR RECEPTIONIST Height 170.2 cm (5' 7 ) 06/13/2022 8:38 AM CDT Body Mass Index 28.94 06/13/2022 8:38 AM CDT Procedures * XR SHOULDER RIGHT 2VW OR MORE(Performed 01/25/2024) Performed for Right arm pain, Acute pain of right shoulder * XR CERVICAL SPINE 2 OR 3VW(Performed 01/25/2024) Performed for Right arm pain, Acute pain of right shoulder * US EXTREMITY LEFT LTD NONVASC(Performed 07/04/2023) Performed for Arm mass, left * LAB RESULTS ORDER(Performed 07/09/2022) * COLOGUARD TEST(Performed 06/20/2022) Performed for Screening for malignant neoplasm of colon * TSH REFLEX FREE T4(Performed 06/13/2022) Performed for Well adult exam * LIPID PROFILE(Performed 06/13/2022) Performed for Well adult exam * COMPREHENSIVE METABOLIC PANEL(Performed 06/13/2022) Performed for Well adult exam * CBC W AUTO DIFFERENTIAL(Performed 06/13/2022) Performed for Well adult exam * LAB RESULTS ORDER(Performed 06/13/2022) * LAB RESULTS ORDER(Performed 06/05/2022) * LAB RESULTS ORDER(Performed 06/03/2020) * XR LUMBAR SPINE 2 OR 3VW(Performed 05/31/2020) Performed for Acute bilateral low back pain without sciatica Results * XR Shoulder Right 2Vw or More (01/25/2024 10:12 AM HR RECEPTIONIST) Anatomical Region Laterality Modality Upper Extremity Radiographic Melanie ging 01/25/2024 2:38 PM HR RECEPTIONIST Narrative 01/25/2024 2:41 PM HR RECEPTIONIST EXAM: XR CERVICAL SPINE 2 OR 3VW, XR SHOULDER RIGHT 2VW OR MORE INDICATION: M79.601: Pain in right arm M25.511: Pain in right shoulder COMPARISON: None FINDINGS: Cervical spine: Mild reversal of the normal cervical lordosis centered at C4-5. Minimal anterolisthesis of C3 on C4. The vertebral body heights are maintained. Mild disc space narrowing at C4-5. Facet arthrosis at C6-7. No significant osseous neural foraminal narrowing. No prevertebral soft tissue swelling. Right shoulder: No acute fracture or dislocation. The glenohumeral and acromioclavicular joint spaces are maintained. > Interpreting Provider: Sanya Early MD on 01/25/2024 2:41 PM Procedure Note Sanya Early MD - 01/25/2024 EXAM: XR CERVICAL SPINE 2 OR 3VW, XR SHOULDER RIGHT 2VW OR MORE INDICATION: M79.601: Pain in right arm M25.511: Pain in right shoulder COMPARISON: None FINDINGS: Cervical spine: Mild reversal of the normal cervical lordosis centered at C4-5. Minimal anterolisthesis of C3 on C4. The vertebral body heights are maintained. Mild disc space narrowing at C4-5. Facet arthrosis at C6-7. Nosignificant osseous neural foraminal narrowing. No prevertebral soft tissueswelling. Right shoulder: No acute fracture or dislocation. The glenohumeral and acromioclavicular joint spaces are maintained. > Interpreting Provider: Sanya Early MD on 01/25/2024 2:41 PM Hillary Mcclure SENIOR RISK ANALYST-SPECIAL EDUCATION PARA PROFESSIONAL DI AGNOSTIC IMAGING ORDERABLES * XR Cervical Spine 2 or 3Vw (01/25/2024 10:11 AM HR RECEPTIONIST) Anatomical Region Laterality Modality Spine Radiographic Melanie ging 01/25/2024 2:38 PM HR RECEPTIONIST Narrative 01/25/2024 2:41 PM HR RECEPTIONIST EXAM: XR CERVICAL SPINE 2 OR 3VW, XR SHOULDER RIGHT 2VW OR MORE INDICATION: M79.601: Pain in right arm M25.511: Pain in right shoulder COMPARISON: None FINDINGS: Cervical spine: Mild reversal of the normal cervical lordosis centered at C4-5. Minimal anterolisthesis of C3 on C4. The vertebral body heights are maintained. Mild disc space narrowing at C4-5. Facet arthrosis at C6-7. No significant osseous neural foraminal narrowing. No prevertebral soft tissue swelling. Right shoulder: No acute fracture or dislocation. The glenohumeral and acromioclavicular joint spaces are maintained. > Interpreting Provider: Sanya Early MD on 01/25/2024 2:41 PM Procedure Note Sanya Early MD - 01/25/2024 EXAM: XR CERVICAL SPINE 2 OR 3VW, XR SHOULDER RIGHT 2VW OR MORE INDICATION: M79.601: Pain in right arm M25.511: Pain in right shoulder COMPARISON: None FINDINGS: Cervical spine: Mild reversal of the normal cervical lordosis centered at C4-5. Minimal anterolisthesis of C3 on C4. The vertebral body heights are maintained. Mild disc space narrowing at C4-5. Facet arthrosis at C6-7. Nosignificant osseous neural foraminal narrowing. No prevertebral soft tissueswelling. Right shoulder: No acute fracture or dislocation. The glenohumeral and acromioclavicular joint spaces are maintained. > Interpreting Provider: Sanya Early MD on 01/25/2024 2:41 PM Hillary Mcclure SENIOR RISK ANALYST-SPECIAL EDUCATION PARA PROFESSIONAL DI AGNOSTIC IMAGING ORDERABLES * US EXTREMITY LEFT LTD (NON JOINT) (07/04/2023) Anatomical Region Laterality Modality Lower Extremity, Upper Extremity Ultrasound 07/04/2023 Samreen Friedman SENIOR RISK ANALYST-SPECIAL EDUCATION PARA PROFESSIONAL US ORDERABLES * LAB RESULTS ORDER (07/09/2022) Only the most recent of4 resultswithin the time period is included. 07/09/2022 Narrative 07/09/2022 Ordered by an unspecified provider. Scanned Document LAB - THERAPEUTIC DR MCCRACKEN MONITORING ORDERABLES * [id number] COLOGUARD TEST *Associate with Z12.11 OR Z12.12 Dx Codes* (06/20/2022 6:10 AM CDT) Cologuard Negative Negative [facility] Comment: NEGATIVE TEST RESULT. A [...] with both Cologuard and colonoscopy. (Luis Alberto Steward et al, N Engl J Med 2014;370(14):7589-6372) The normal value (reference range) for this assay is negative. COLOGUARD RE-SCREENING RECOMMENDATION: Periodic colorectal cancer screening is an important part of preventive healthcare for asymptomatic individuals at average risk for colorectal cancer. Following a negative Cologuard result, the [place] Cancer Society and U.S. Multi-Society Task Force screening guidelines recommend a Cologuard re-screening interval of 3 years. References: [place] [employer] Society Guideline for Colorectal Cancer Screening: https://www.cancer.org/cancer/ileyt-jjngyo-pugjcf/kkncpumcm-gzwrseapd-yozoblz/ acs-recommendations.html.; Johny DK, Nirmal CR, Manuela ElmoreK, Colorectal Cancer Screening: Recommendations for Physicians and Patients from the U.S. Multi-Society Task Force on Colorectal Cancer Screening , Am J Gastroenterology 2017; 112:3928-3199. TEST DESCRIPTION: Composite algorithmic analysis of stool [...] with both Cologuard and colonoscopy. (Luis Alberto Steward et al, N Engl J Med 2014;370(14):6079-3498.) Cologuard may produce a false negative or false positive result (no colorectal cancer or precancerous polyp present at colonoscopy follow up). A negative Cologuard test result does not guarantee the absence of CRC or advanced adenoma (pre-cancer). The current Cologuard screening interval is every 3 years. ([place] Cancer Society and U.S. Multi-Society Task Force). Cologuard performance data in a 10,000 patient pivotal study using colonoscopy as the reference method can be accessed at the following location: www.CICCWORLD/results. Additional description of the Cologuard test process, warnings and precautions can be found at www.Spark CRMrd.AUPEO!. Stool STOOL SPECIMEN / Unknown 06/20/2022 6:10 AM CDT 06/21/2022 4:07 PM CDT Hillary Mcclure SENIOR RISK ANALYST-SPECIAL EDUCATION PARA PROFESSIONAL LA B - CHEMISTRY ORDERABLES [facility] [address] [place] [address] [place] [address] [address] [facility] [address] [place] [address]. [place] [address] * TSH REFLEX FREE T4 (06/13/2022 9:01 AM CDT) TSH with Reflex FT4 3.38 mIU/L [facility] Comment: Reference Range > or = 20 Years 0.40-4.50 Ranges First trimester 0.26-2.66 Second trimester 0.55-2.73 Third trimester 0.43-2.91 Test Performed at: [facility] [id number] [place] [id number] VIPUL GARDNER MD Blood BLOOD SPECIMEN / Unknown 06/13/2022 9:01 AM CDT 06/13/2022 9:01 AM CDT Hillary Handley Ren SENIOR RISK ANALYST-SPECIAL EDUCATION PARA PROFESSIONAL LA B - CHEMISTRY ORDERABLES [facility] [address] [place] [address] * CBC WITH DIFFERENTIAL (06/13/2022 9:01 AM CDT) White Blood Cell Count 4.4 3.8 - 10.8 Thousand/u L [facility] RBC 4.41 3.80 - 5.10 Million/uL [facility] Hemoglobin 12.9 11.7 - 15.5 g/dL [facility] Hematocrit 38.3 35.0 - 45.0 % [facility] MCV 86.8 80.0 - 100.0 fL [facility] MCH 29.3 27.0 - 33.0 pg [facility] MCHC 33.7 32.0 - 36.0 g/dL [facility] RDW 12.2 11.0 - 15.0 % [facility] Platelet Count 217 140 - 400 Thousand/u L [facility] MPV 10.8 7.5 - 12.5 fL [facility] Neutrophil Absolute 2072 1500 - 7800 cells/uL [facility] Absolute Bands [facility] Metamyelocytes Absolute [facility] Myelocytes Absolute [facility] Absolute Prolymphocytes [facility] Lymphocytes Absolute 1558 850 - 3900 cells/uL [facility] Absolute Monocytes 607 200 - 950 cells/uL [facility] Eosinophils Absolute 123 15 - 500 cells/uL [facility] Basophils Absolute 40 0 - 200 cells/uL [facility] Absolute Blasts [facility] nRBC Absolute [facility] Granulocytes % 47.1 % [facility] Band Neutrophil [facility] Metamyelocytes [facility] Myelocytes [facility] Promyelocytes [facility] Lymphocytes % 35.4 % [facility] Lymphocyte Reactive [facility] Monocytes % 13.8 % [facility] Eosinophils % 2.8 % [facility] Basophils % 0.9 % [facility] Comment: Test Performed at: [email or web address] [address] [place] [address] VIPUL GARDNER MD Blasts [facility] nRBC [facility] Comments [facility] Comment: Test Performed at: [email or web address] [address] [place] [address] VIPUL GARDNER MD Blood BLOOD SPECIMEN / Unknown 06/13/2022 9:01 AM CDT 06/13/2022 9:01 AM CDT Hillary Mcclure SENIOR RISK ANALYST-SPECIAL EDUCATION PARA PROFESSIONAL LA B - HEMATOLOGY ORDERABLES [facility] [address] [place] [address] * (ABNORMAL) COMPREHENSIVE METABOLIC PANEL (06/13/2022 9:01 AM CDT) Glucose 64(L) 65 - 99 mg/dL [facility] Comment: Fasting reference interval BUN 19 7 - 25 mg/dL [facility] Creatinine 1.29(H) 0.50 - 1.03 mg/dL [facility] eGFR by Cystatin C 49(L) > OR = 60 mL/min/1.7 3m2 [facility] Comment: The eGFR is based on the CKD-EPI 2020 equation. To calculate the new eGFR from a previous Creatinine or Cystatin C result, go to https://www.kidney.org/professionals/ kdoqi/gfr%5Fcalculator BUN/Creatinine Ratio 15 6 - 22 (calc) [facility] Sodium 141 135 - 146 mmol/L [facility] Potassium 4.3 3.5 - 5.3 mmol/L [facility] Chloride 106 98 - 110 mmol/L [facility] CO2 29 20 - 32 mmol/L [facility] Calcium 9.4 8.6 - 10.4 mg/dL [facility] Protein Total 7.2 6.1 - 8.1 g/dL [facility] Albumin 4.3 3.6 - 5.1 g/dL [facility] Globulin Total 2.9 1.9 - 3.7 g/dL (calc) [facility] Albumin/Globulin Ratio 1.5 1.0 - 2.5 (calc) [facility] Bilirubin Total 0.4 0.2 - 1.2 mg/dL [facility] Alkaline Phosphatase 58 37 - 153 U/L [facility] AST 15 10 - 35 U/L [facility] ALT 11 6 - 29 U/L [facility] Comment: Test Performed at: [email or web address] [address] [facility] [place] [address] VIPUL GARDNER MD Blood BLOOD SPECIMEN / Unknown 06/13/2022 9:01 AM CDT 06/13/2022 9:01 AM CDT Hillary Emmanuelle SMITH LA B - CHEMISTRY ORDERABLES Performing Organization Address [facility] Co de Phone Number [facility] [address] [place] [address] * LIPID PROFILE (06/13/2022 9:01 AM CDT) [...] factors. LDL-C is now calculated using the Ashwin calculation, which is a validated novel method providing better accuracy than the Friedewald equation in the estimation of LDL-C. Nestor JACOBS et al. CHRISTOPHER. 2013;310(19): 3670-0957 (http://education.Seymour Innovative.AUPEO!/faq/TEE559) CHOL/HDLC RATIO 2.8 <5.0 (calc) [facility] Non HDL Cholesterol 112 <130 mg/dL (calc) [facility] Comment: For patients with diabetes plus 1 major ASCVD risk factor, treating to a non-HDL-C goal of <100 mg/dL (LDL-C of <70 mg/dL) is considered a therapeutic option. Test Performed at: [facility] [address] [place] [address] VIPUL GARDNER MD Blood BLOOD SPECIMEN / Unknown 06/13/2022 9:01 AM CDT 06/13/2022 9:01 AM CDT Hillary Emmanuelle SMITH LA B - CHEMISTRY ORDERABLES Performing Organization Address [facility] Co de Phone Number [address] [address] [place] [address] * XR LUMBAR SPINE 2 OR 3VW (05/31/2020 1:36 PM CDT) Anatomical Region Laterality Modality Spine Radiographic Melanie ging 05/31/2020 5:01 PM CDT Impressions 05/31/2020 5:05 PM CDT No acute abnormality identified. 5 lumbar vertebrae. Degenerative disc disease with marked L5-S1 disc space narrowing and minimal L4-5 disc space narrowing. Lumbar neural arches all appear intact. Bilateral facet arthropathy, greater in lower lumbar spine. Minimal grade I/IV spondylolisthesis of L4 anterior on L5. MRI of lumbar spine would be suggested if further imaging evaluation of patient's complaints deemed clinically indicated. *Reading Radiologist: Oneil Ferrer on 05/31/2020 at 5:05 PM Narrative 05/31/2020 5:05 PM CDT LUMBAR SPINE 5 VIEWS 05/31/2020 HISTORY: Low back pain radiating down both lower extremities, worse on the right, for the past several months. Increased pain with flexion, extension, standing, walking, and with changes in position at night. COMPARISON: None. Procedure Note Oneil Ferrer MD - 05/31/2020 LUMBAR SPINE 5 VIEWS 05/31/2020 HISTORY: Low back pain radiating down both lower extremities, worse on the right, for the past several months. Increased pain with flexion, extension, standing, walking, and with changes in position at night. COMPARISON: None. IMPRESSION No acute abnormality identified. 5 lumbar vertebrae. Degenerative disc disease with marked L5-S1 disc space narrowing and minimal L4-5 disc space narrowing. Lumbar neural arches all appear intact. Bilateral facet arthropathy, greater in lower lumbar spine. Minimal grade I/IV spondylolisthesis of L4 anterior on L5. MRI of lumbar spine would be suggested if further imaging evaluation of patient's complaints deemed clinically indicated. *Reading Radiologist: Oneil Ferrer on 05/31/2020 at 5:05 PM Mani Omer DO DIAGNOSTIC IMAGING O RDERABLES Care Teams Paint Line Production Supervisor Relationship Specialty Start Date End Date Chris Kohler MD [address] [id number] PCP - General Family Medicine 07/10/22
--- OUTSIDE RECORDS SUMMARY | 2024-05-13 15:40 | XMS_ITS | Referral Summary ---
Author Organization [facility] Address [address] [facility] [place] [address] Care Team Providers Care Square Shear Operator Name Role Phone Chris Kohler MD Primary Care Provider [phone] Source Comments [facility],non-owned Affiliates and Associated Physician Practices is amultiple site organization consisting of ambulatory clinics and hospital sitesin [place], [place], [place] and [place]. This disclosure is being madepursuant to the Care Everywhere program and may not contain all information available regarding this patient. Last updated 17.[facility] Encounters Date Type Department Care Team Description 02/24/2024 Refill [facility] [address] [facility], [facility] [address] [place] [address] Hillary Mcclure APRN-CNP MEDICATION REFILL 02/24/2024 Refill [facility] [address] [facility], [address] [address] Hillary Mcclure APRN-CNP MEDICATION REFILL from Last 3 Months Allergies Active Allergy Reactions Criticality Noted Date [...] Date Hypothyroidism 01/08/2021 Seasonal allergies 08/08/2017 Immunizations Name Administration Dates Next Due TDAP, HISTORIC VACCINE 06/03/2022 Social History Tobacco Use Types Packs/Day Years [...] Comments Blood Pressure 123/82 01/25/2024 9:34 AM UTILIZATION MANAGEMENT RN Pulse 66 01/25/2024 9:34 AM UTILIZATION MANAGEMENT RN Temperature 36.7 C (98.1 F) 04/30/2020 9:21 AM UTILIZATION MANAGEMENT RN Respiratory Rate 12 06/13/2022 8:38 AM CDT Oxygen Saturation 99% 01/25/2024 9:34 AM UTILIZATION MANAGEMENT RN Inhaled Oxygen Concentration - - Weight 83.8 kg (184 lb 12.8 oz) 01/25/2024 9:34 AM UTILIZATION MANAGEMENT RN Height 170.2 cm (5' 7 ) 06/13/2022 8:38 AM CDT Body Mass Index 28.94 06/13/2022 8:38 AM CDT Plan of Treatment Not on file Procedures Procedure Name Priority Date/Time Associated Diagnosis Comments COLOGUARD TEST Routine 06/20/2022 6:10 AM CDT Screening for malignant neoplasm of colon LIPID PROFILE Routine 06/13/2022 9:01 AM CDT Well adult exam from Last 3 Months or Most Recently Relevant to Health Maintenance Results * [id number] COLOGUARD TEST *Associate with Z12.11 OR Z12.12 Dx Codes* (06/20/2022 6:10 AM CDT) Cologuard Negative Negative [facility] Comment: NEGATIVE TEST RESULT. A negative [...] Steward et al, N Engl J Med 2014;370(14):4220-6408) The normal value (reference range) for this assay is negative. COLOGUARD RE-SCREENING RECOMMENDATION: Periodic colorectal cancer screening is an important part of preventive healthcare for asymptomatic individuals at average risk for colorectal cancer. Following a negative Cologuard result, the [place] Cancer Society and U.S. Multi-Society Task Force screening guidelines recommend a Cologuard re-screening interval of 3 years. References: [place] Cancer Society Guideline for Colorectal Cancer Screening: https://www.cancer.org/cancer/iduej-fazbnk-lxevvs/auebzlgxo-esudgzfas-icjyrtr/ acs-recommendations.html.; Johny DK, Nirmal PHAM, Manuela ElmoreK, Colorectal Cancer Screening: Recommendations for Physicians and Patients from the U.S. Multi-Society Task Force on Colorectal Cancer Screening , Am J Gastroenterology 2017; 112:4472-8709. TEST DESCRIPTION: Composite algorithmic analysis of stool [...] Alberto Tsai al, N Engl J Med 2014;370(14):6803-6454.) Cologuard may produce a false negative or false positive result (no colorectal cancer or precancerous polyp present at colonoscopy follow up). A negative Cologuard test result does not guarantee the absence of CRC or advanced adenoma (pre-cancer). The current Cologuard screening interval is every 3 years. ([place] Cancer Society and U.S. Multi-Society Task Force). Cologuard performance data in a 10,000 patient pivotal study using colonoscopy as the reference method can be accessed at the following location: www.SupportBee/results. Additional description of the Cologuard test process, warnings and precautions can be found at www.WindPole Venturesrd115 network disks. Stool STOOL SPECIMEN / Unknown 06/20/2022 6:10 AM CDT 06/21/2022 4:07 PM CDT Hillary Mcclure DATABASE TESTER-SENIOR TELECOMMUNICATIONS SPECIALIST LA B - CHEMISTRY ORDERABLES Performing Organization Address City/State/[facility] Co de Phone Number [facility] [address] [place] [address] [facility] [address] [place] [address]. [place] [address] * LIPID PROFILE (06/13/2022 9:01 AM CDT) [...] LDL-C. Nestor JACOBS et al. CHRISTOPHER. 2013;310(19): 5497-9681 (http://education.International Barrier Technology/faq/JNZ894) CHOL/HDLC RATIO 2.8 <5.0 (calc) [facility] Non HDL Cholesterol 112 <130 mg/dL (calc) [facility] Comment: For patients with diabetes plus 1 major ASCVD risk factor, treating to a non-HDL-C goal of <100 mg/dL (LDL-C of <70 mg/dL) is considered a therapeutic option. Test Performed at: [facility] [address] [place] [address] VIPUL GARDNER MD Blood BLOOD SPECIMEN / Unknown 06/13/2022 9:01 AM CDT 06/13/2022 9:01 AM CDT Hillary Mcclure DATABASE TESTER-SENIOR TELECOMMUNICATIONS SPECIALIST LA B - CHEMISTRY ORDERABLES [facility] [address] [place] [address] from Last 3 Months or Most Recently Relevant to Health Maintenance Care Teams Square Shear Operator Relationship Specialty Start Date End Date Chris Kohler MD [address] [address] PCP - General Family Medicine 07/10/22
--- OUTSIDE RECORDS SUMMARY | 2024-05-13 15:41 | XMS_ITS | Clinical Summary ---
Author Organization [facility] Address Replaced by [facility] [place] [address] Care Team Providers Care Damage Inside Adjuster Name Role Phone Unavailable Primary Care Provider Unavailabl e Social History Tobacco Use Types Packs/Day Years Used Date Smoking Tobacco: Never Assessed Comments Unknown Sex and Gender Information Value Date Recorded Sex Assigned at Not on file Legal Sex Female 5:09 PM CDT Gender Identity Not on file Sexual Orientation Not on file Plan of Treatment Health Maintenance Due Date Last Done Comments Cervical Cancer Screening Pa p Smear (Age 30 to 64) Every 3 Years 1966 Colorectal Cancer Screening Colonoscopy (10 Years) 1966 Annual Physical 1969 Hepatitis C 1984 DTaP, Tdap and Td Vaccines ( 1 - Tdap) 1985 Hepatitis B Vaccines (1 of 3 - 19+ 3-dose series) 1985 Cervical Cancer Screening Pa p with HPV Testing (Age 30 to 64) Every 5 Years 1996 Cervical Cancer Screening with HPV 1996 Mammogram Screening 2006 Zoster Vaccines (1 of 2) 2016 COVID-19 Vaccine (2023-2 5 season) 2023 Influenza Adult (#1) 2023 Meningococcal B Vaccine Aged Out No l onger eligible based on patient's age to complete this topic Meningococcal Vaccine Aged Out No allison felix eligible based on patient's age to complete this topic Pneumococcal Vaccine: Pediat rics (0 to 5 Years) and At-Risk Patients (6 to 64 Years) Aged Out No longer eligible b ased on patient's age to complete this topic RSV Immunizations Under 20 Months Aged Out No longer eligible based on patient's age to complete this topic
--- OUTSIDE RECORDS SUMMARY | 2024-05-13 15:41 | XMS_ITS | Encounter Summary ---
Author Organization [facility] Address [address] [facility] Attn: [place] [address] Care Team Providers Care Transverse Abdominal Muscle Surgeon Name Role Phone Unavailable Primary Care Provider Unavailabl e Encounter Details Date Type Department Care Team (Late st Contact Info) Description 10/06/1998 Outpatient Historical Alexis Price MD [address] [facility] [address] [place] [id number] Social History Tobacco Use Types Packs/Day Years Used Date Smoking Tobacco: Never Assessed Comments Unknown Sex and Gender Information Value Date Recorded Sex Assigned at Not on file Legal Sex Female 4:00 AM DISTRICT MANAGER IN TRAINING Gender Identity Not on file Sexual Orientation Not on file documented as of this encounter Plan of Treatment Not on file documented as of this encounter Visit Diagnoses Not on filedocumented in this encounter
== END 2024-05-13 13:36 | disposition home or self-care (01) ==
LOC: ANHSURGERY 13:42
PROVIDERS: Visit Provider Urology
DX: Z01.818 Encounter for other preprocedural examination (principal); N81.4 Uterovaginal prolapse, unspecified; R94.31 Abnormal electrocardiogram [ECG] [EKG]
CPT/HCPCS: 36415; 80053; 85025; 85610; 85730; 86850; 86900; 86901; 93005

== ENCOUNTER 2024-05-26 00:16 | Day surgery (SDC) | payer BC, SELFPAY ==
[2024-05-13 13:50] VITALS: BP 132/67; PULSE 76; RESP 14; TEMP 37.1; O2SAT 100; BMI 29.0
--- NOTE | 2024-05-13 14:07 | PC.NURSE ---
Report to the Outpatient Waiting Room, entrance under the green pavilion located off [facility], at time ___1000am____ on date __05/26/24 . Planned Procedure Time: ___1200pm .? Time changes happen often and if your time is changed the preop area will call you the afternoon before. - You and your visitor will be asked to self-screen and do not enter if you have any COVID symptoms. Please call surgeon if you need to reschedule. - A mask is optional within the hospital at this time. Patients may have clear liquids (water, carbonated beverages, clear teas, apple juice) until 3 hours prior to surgery with a maximum of 20 ounces. - No food from midnight until time of surgery and no smoking, or chewing tobacco (or any form of nicotine). No chewing gum, candy or mints. (0900am) Take only the following medications with a SIP of water on the morning of surgery: None DO NOT STOP ANY OF YOUR OTHER PRESCRIPTION MEDICATIONS PRIOR TO SURGERY EXCEPT THE FOLLOWING Hold all vitamins and supplements for 3 days per anesthesiologist. Date to take last dose___05/22/24 Please no make-up, nail fijian, hairspray, perfume, deodorant, or body powder the day of surgery.? No jewelry (including any body piercings) or valuables the day of surgery, leave them at home.? Please take a shower or bath the night before, or the morning of, surgery with an antibacterial soap.? Wear comfortable, loose fitting clothing.? - Jewelry must be removed prior to entering the operating room.? Rings and piercings that are not removed may be cut off. - The hospital will not accept responsibility for valuables.? - Please leave all valuables, including medications, at home the day of surgery. If you are going home after surgery, a licensed bus driver must drive you home.? - NO public transportation without another adult if you receive anesthesia. - We recommend that an adult stay with you for 24 hours following discharge. - We also recommend that you do not drive, make important decision, drink alcoholic beverages, or take any drugs that were not prescribed by your health care provider for at least 24 hours after your discharge time. Follow any additional instructions given to you from your surgeon. Telephone instructions given to _Patient ____and asked if any additional questions and then verbalized understanding. Patient advised to call surgeon office or pre surgery nurse liaison [phone] if any additional questions.
--- NOTE | 2024-05-21 07:28 | P.HP_ITS ---
H&P: HPI History of Present Illness Date/Time: 05/21/24 07:28 Chief Complaint: Uterine prolapse Narrative: 58-year-old female with uterine prolapse admitted for supracervical hysterectomy bilateral salpingo-oophorectomy. Dr. Patterson will proceed with a sling and sacral colpopexy as well risks and benefits reviewed including not exclusive of , aspiration, bleeding, transfusion, perforation injury to bowel, bladder, ureters, or other with laparotomy. She received the ACOG handout entitled hysterectomy as well as the Debbi handout. She had all questions answered. She asked to proceed. Review of Systems Review of Systems: All systems reviewed & are unremarkable except as noted in HPI and below [facility] Social History Social History Smoking status: Never smoker Alcohol intake: current Drinks per week: 2 Substance use: never Living arrangements: with family Additional living arrangements comments: Spiritual care concerns: No Meds Home Medications and Allergies Home Medications ?Medication ?Instructions ?Recorded ?Confirmed ?Type No Home Medications 05/13/24 05/13/24 History Allergies Allergy/AdvReac Type Severity Reaction Status Date / Time Penicillins Allergy Intermediate rash Verified 05/13/24 13:47 Exam Const: General: cooperative, healthy appearing and comfortable Nutritional Appearance: overweight Orientation/consciousness: oriented to person, oriented to place and oriented to time HENMT: Head: normal to inspection Resp: Effort & Inspection: normal respiratory effort Cardio: Rate: regular rate Rhythm: regular rhythm Heart sounds: S1 normal heart sound present and S2 normal heart sound present GI: Inspection: normal to inspection Auscultation: normal bowel sounds : External Female Exam: normal external appearance Speculum Exam - Vagina: normal appearance of the vagina Speculum Exam - Cervix: normal appearance of the cervix Bimanual exam- vagina & uterus: soft and other (2nd- 3rd degree prolapse present) Bimanual Exam- Adnexa, other: normal adnexae Assessment and Plan Assessment and plan (1) Uterine prolapse: Code(s): N81.4 - Uterovaginal prolapse, unspecified Status: Acute Plan Proceed with robotic supracervical hysterectomy and bilateral salpingo- oophorectomy
--- NOTE | 2024-05-24 10:49 | PM.IMHP ---
H&P: HPI History of Present Illness Date/Time: 05/24/24 10:49 Chief Complaint: POP/ABIMAEL Narrative: Prolpase and ABIMAEL Review of Systems Review of Systems: All systems reviewed & are unremarkable except as noted in HPI and below [facility] Social History Social History Smoking status: Never smoker Alcohol intake: current Drinks per week: 2 Substance use: never Living arrangements: with family Additional living arrangements comments: Spiritual care concerns: No Meds Home Medications and Allergies Home Medications ?Medication ?Instructions ?Recorded ?Confirmed ?Type No Home Medications 05/13/24 05/13/24 History Allergies Allergy/AdvReac Type Severity Reaction Status Date / Time Penicillins Allergy Intermediate rash Verified 05/13/24 13:47 Exam Narrative: anterior wall +2 [place] 0 + urethral mobility Assessment and Plan Assessment and plan (1) Cystocele with incomplete uterovaginal prolapse: Code(s): N81.2 - Incomplete uterovaginal prolapse Status: Acute (2) ABIMAEL (stress urinary incontinence, female): Code(s): N39.3 - Stress incontinence (female) (male) Status: Acute Plan Robotic Sacral Colpopexy/urethral sling
[2024-05-26] VITALS (12 sets, daily range): BP systolic 111–136; BP diastolic 62–86; PULSE 60–78; RESP 8–20; TEMP 36.5–37.1; O2SAT 98–100; BMI 28.6
--- OUTSIDE RECORDS SUMMARY | 2024-05-26 00:21 | XMS_ITS | Clinical Summary ---
Author Organization [facility] Address [address] [place] [address] Care Team Providers Care Requirements Analyst Name Role Phone Unavailable Primary Care Provider Unavailabl e Encounters Date Type Department Care Team Description 05/23/2024 External Device Data STL ABSTRACTION Provider, Abstract 05/21/2024 External Device Data STL ABSTRACTION Provider, Abstract 05/07/2024 External Device Data STL ABSTRACTION Provider, Abstract 04/09/2024 External Device Data STL ABSTRACTION Provider, Abstract 04/01/2024 External Device Data STL ABSTRACTION Provider, Abstract from Last 3 Months Social History Tobacco Use Types Packs/Day Years Used Date Smoking Tobacco: Never Assessed Comments Unknown Sex and Gender Information Value Date Recorded Sex Assigned at Not on file 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
--- OUTSIDE RECORDS SUMMARY | 2024-05-26 00:21 | XMS_ITS | Clinical Summary ---
Author Organization [facility] Address [facility] [place] [address] Care Team Providers Care Bicycle Service Technician Name Role Phone Unavailable Primary Care Provider [...]
--- OUTSIDE RECORDS SUMMARY | 2024-05-26 00:21 | XMS_ITS | Encounter Summary ---
Author Organization [facility] Address [address] [facility] Attn: [place] [address] Care Team Providers Care Top Flavor Attendant Name Role Phone Unavailable Primary Care Provider Unavailabl e Encounter Details Date Type Department Care Team (Late st Contact Info) Description 10/06/1998 Outpatient Historical Alexis Price MD [address] 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
--- OUTSIDE RECORDS SUMMARY | 2024-05-26 00:21 | XMS_ITS | Clinical Summary ---
Author Organization [facility] Address [address] [place] [address] Care Team Providers Care Ems Educator Name Role Phone Chris Kohler MD Primary Care Provider [phone] Source Comments [facility],non-owned Affiliates and Associated Physician Practices is amultiple site organization consisting of ambulatory clinics and hospital sitesin [place], [place], [place] and [place]. This disclosure is being madepursuant to the Care Everywhere program and may not contain all information available regarding this patient. Last updated 17.[facility] [employer] Allergies Active Allergy Reactions Criticality Noted Date [...] Comments Blood Pressure 123/82 01/25/2024 9:34 AM HERB DOCTOR Pulse 66 01/25/2024 9:34 AM HERB DOCTOR Temperature 36.7 C (98.1 F) 04/30/2020 9:21 AM HERB DOCTOR Respiratory Rate 12 06/13/2022 8:38 AM CDT Oxygen Saturation 99% 01/25/2024 9:34 AM HERB DOCTOR Inhaled Oxygen Concentration - - Weight 83.8 kg (184 lb 12.8 oz) 01/25/2024 9:34 AM HERB DOCTOR Height 170.2 cm (5' 7 ) 06/13/2022 [...] VACCINE (1 of 2) 2016 COVID-19 VACCINE (1 - season) 2023 DEPRESSION SCREENING 03/19/2024 06/19/2023, 06/14/19 23 INFLUENZA VACCINE (#1) 2024 Postp oned from 11/18/2023 (Patient Directed) PAP SMEAR 06/14/2025 06/14/2022 (Done Outside Per Report), 01/17/2018 (Done Outside Per Patient) COLOGUARD (AGES 45-75) - COLON CA SCREENING 06/20/2025 06/20/2022, 06/20/2022 Colorectal Cancer Screening 06/20/2025 LIPID TESTING [...] Recently Relevant to Health Maintenance Results * [id number] COLOGUARD TEST *Associate with Z12.11 OR Z12.12 Dx Codes* (06/20/2022 6:10 AM CDT) Cologuard Negative Negative [facility] Comment: NEGATIVE TEST RESULT. A negative [...] Alberto Tsai al, N Engl J Med 2014;370(14):1063-6700) The normal value (reference range) for this assay is negative. COLOGUARD RE-SCREENING RECOMMENDATION: Periodic colorectal cancer screening is an important part of preventive healthcare for asymptomatic individuals at average risk for colorectal cancer. Following a negative Cologuard result, the [place] [employer] Society and U.S. Multi-Society Task Force screening guidelines recommend a Cologuard re-screening interval of 3 years. References: [place] [employer] Guideline for Colorectal Cancer Screening: https://www.cancer.org/cancer/nhbgl-kudrcy-vjrfyo/hmuegdhym-mntiiqdje-stexcav/ acs-recommendations.html.; Johny EMERY, Nirmal PHAM, Manuela ElmoreK, Colorectal Cancer Screening: Recommendations for Physicians and Patients from the U.S. Multi-Society Task Force on Colorectal Cancer Screening , Am J Gastroenterology 2017; 112:4150-7759. TEST DESCRIPTION: Composite algorithmic analysis of stool [...] Steward et al, N Engl J Med 2014;370(14):2825-8912.) Cologuard may produce a false negative or false positive result (no colorectal cancer or precancerous polyp present at colonoscopy follow up). A negative Cologuard test result does not guarantee the absence of CRC or advanced adenoma (pre-cancer). The current Cologuard screening interval is every 3 years. ([place] [employer] Society and U.S. Multi-Society Task Force). Cologuard performance data in a 10,000 patient pivotal study using colonoscopy as the reference method can be accessed at the following location: www.[employer]/results. Additional description of the Cologuard test process, warnings and precautions can be found at www.Pulse 8.com. Stool STOOL SPECIMEN / Unknown 06/20/2022 6:10 AM CDT 06/21/2022 4:07 PM CDT Hillary Emmanuelle Mcclure APRN-TOBACCO STEMMER LA B - CHEMISTRY ORDERABLES Performing Organization Address City/[facility] Co de Phone Number [facility] [address] [place], [place] [id number] [facility] [address] [place] [address]. [place] [address] * LIPID PROFILE (06/13/2022 9:01 AM CDT) [...] equation in the estimation of LDL-C. Nestor SS et al. CHRISTOPHER. 2013;310(19): 0619-4586 (http://education.[employer]/faq/YJX571) CHOL/HDLC RATIO 2.8 <5.0 (calc) [facility] Non HDL Cholesterol 112 <130 mg/dL (calc) [facility] Comment: For patients with diabetes plus 1 major ASCVD risk factor, treating to a non-HDL-C goal of <100 mg/dL (LDL-C of <70 mg/dL) is considered a therapeutic option. Test Performed at: [facility] [address] [place] [address] VIPUL GARDNER MD Blood BLOOD SPECIMEN / Unknown 06/13/2022 9:01 AM CDT 06/13/2022 9:01 AM CDT Hillary Emmanuelle Mcclure APRN-TOBACCO STEMMER LA B - CHEMISTRY ORDERABLES Performing Organization Address City/[facility]/ZIP Co de Phone Number [facility] [address] [place] [address] from Last 3 Months or Most Recently Relevant to Health Maintenance Care Teams Ems Educator Relationship Specialty Start Date End Date Chris Kohler MD [address] [address] PCP - General Family Medicine 07/10/22
--- OUTSIDE RECORDS SUMMARY | 2024-05-26 00:21 | XMS_ITS | Encounter Summary ---
Author Organization [facility] Address 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
--- OUTSIDE RECORDS SUMMARY | 2024-05-26 00:21 | XMS_ITS | Encounter Summary ---
Author Organization [facility] Address [address] [facility] Attn: [place] [address] Care Team Providers Care Carton Liner Name Role Phone Unavailable Primary Care Provider Unavailabl e Encounter Details Date Type Department Care Team (Late st Contact Info) Description 10/27/1998 Outpatient Historical Alexis Price MD [address] 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
--- OUTSIDE RECORDS SUMMARY | 2024-05-26 00:21 | XMS_ITS | Encounter Summary ---
Author Organization [facility] Address [address] [place] [address] Care Team Providers Care Bleach Boiler Puller Name Role Phone Chris Kohler MD Primary Care Provider [phone] Reason for Visit * Reason Onset Date Comments MEDICATION REFILL 02/24/2024 Encounter Details Date Type Department Care Team (Late st Contact Info) Description 02/24/2024 Refill [facility] - Family Medicine [address] [address] Hillary Mcclure, QUALITY CONTROL DIRECTOR-[facility] [address] [phone] MEDICATION REFILL Social History Tobacco Use Types [...] shoulder documented in this encounter Care Teams Bleach Boiler Puller Relationship Specialty Start Date End Date Chris Kohler MD [address] [phone] PCP - General Family Medicine 07/10/22 documented as of this encounter
--- OUTSIDE RECORDS SUMMARY | 2024-05-26 00:21 | XMS_ITS | Data Portability ---
Author Organization [facility] , [facility] Address [address] [place] [address] Assessment No assessment recorded. Plan of Treatment Reminders Order Date Submit Date Provider Last Modified By Organization Details Last Modified Time Details Appointments None recorded. Lab urinalysis, dipstick 2022 023 0 [facility], [address] [place], [address], 3 09:34:59 keesha wet prep 2022 023 [email or web address] [id number] [facility], [address] [place], [address], 3 14:14:18 HPV E6+E7 mRNA, qualitative PCR, cervix 2022 023 [facility], [address] [place], [address], 3 15:30:59 pap, LB 2022 023 [facility], [address] [facility], [place], [address], 3 17:34:33 Referral None recorded. Procedures None recorded. Surgeries None recorded. Imaging MAMMO, screening, digital, bilateral 2023 024 [id number] 0 [facility]ly [facility] (Central [facility]), [address] [place] [address], [place], [address], 08:57:20 Medication Orders None recorded. Patient TargetsNo targets recorded. Patient Instructions Encounter Date Encounter Id Patient Instructions Last Modified By Organization Details Last Modified Time 06/14/2022 [id number] A healthy lifestyle: care instructions [email or web address] Not available 06/14/2022 10:58:17 calcium and vitamin D combination [email or web address] Not available 06/14/2022 10:58:17 depression (wome n only) [email or web address] Not available 06/14/2022 10:58:17 eating healthy foods: care instructions [id number] Not available 06/14/2022 10:58:17 exercise program : getting started [email or web address] Not available 06/14/2022 10:58:17 protect bone wit h calcium and vitamin D [email or web address] Not available 06/14/2022 10:58:17 osteoporosis education [email or web address] Not available 06/14/2022 10:58:17 breast self-exam : care instructions [id number] Not available 06/14/2022 10:58:17 02/12/2024 [id number] A healthy lifestyle: care instructions [email or web address] Not available 02/12/2024 13:46:44 calcium and vitamin D combination [email or web address] Not available 02/12/2024 13:46:44 depression (wome n only) [email or web address] Not available 02/12/2024 13:46:44 eating healthy foods: care instructions [email or web address] Not available 02/12/2024 13:46:44 exercise program : getting started [email or web address] Not available 02/12/2024 13:46:44 protect bone wit h calcium and vitamin D [id number] Not available 02/12/2024 13:46:44 osteoporosis education [email or web address] Not available 02/12/2024 13:46:44 breast self-exam : care instructions [id number] Not available 02/12/2024 13:46:44 Reason for Referral [...] l cervi lio cytol ogy. Not Available [facility] [address] [place], [address], 06/15/2022 15:30:59 06/15/19 23 06/21/2022 THINP REP TIS PAP clinical information: normal None given Not Available [address] [place], [address], 06/21/2022 17:34:33 06/15/19 23 06/21/2022 THINP REP TIS PAP LMP: normal NONE GIVEN Not Available [address] [address] [place], [address], 06/21/2022 17:34:33 06/15/19 23 06/21/2022 THINP REP TIS PAP prev. Pap: normal NONE GIVEN Not Available [address] [place], [address], 06/21/2022 17:34:33 06/15/19 23 06/21/2022 THINP REP TIS PAP prev. BX: normal NONE GIVEN Not Available [address] [place], [address], 06/21/2022 17:34:33 06/15/19 23 06/21/2022 THINP REP TIS PAP source: normal Cervi x Not Available [address] [address] [place], [address], 06/21/2022 17:34:33 06/15/19 23 06/21/2022 THINP REP TIS PAP statement of adequacy: normal Satis facto ry for evalu ation . Endoc ervic al/tr ansfo rmati on zone compo nent prese nt. Age and/o r menst rual statu s not provi ded Not Available [address] [place], [address], 06/21/2022 17:34:33 06/15/19 23 06/21/2022 THINP REP TIS PAP interpretati on/result: normal Negat nanda for intra epith elial lesio n or jeanette manjarrez . Not Available [address], [place], [address], 06/21/2022 17:34:33 06/15/19 23 06/21/2022 THINP REP TIS PAP comment: normal This Pap test has been evalu ated with compu ter amanda tnai techn ology . Not Available [address] , [place], [address], 06/21/2022 17:34:33 06/15/19 23 06/21/2022 THINP REP TIS PAP cytotechnolo gist: normal BKA, CT( CP) CT scree luh locat ion: [place] [address] [place] [address] Not Available [address], [place], [address], 06/21/2022 17:34:33 06/15/19 23 06/21/2022 THINP REP [...] clini lio infor matio n. Not Available [address] , [place], [address], 06/21/2022 17:34:33 06/15/19 23 06/14/2022 VAGIN ITIS PANEL vaginitis panel Not Available [facility] [address] [place], [address], 06/30/2022 15:54:57 06/15/19 23 06/14/2022 keesha wet prep Hyphae Presen t Not Available [address], [address], 06/14/2022 14:13:54 06/15/19 23 06/14/2022 urina lysis , dipst ick Leukocytes Negati ve Not Available [address], [address], 06/12/2022 14:36:22 06/15/19 23 06/14/2022 urina lysis , dipst ick Nitrite negati ve Not Available [address], [address], 06/12/2022 14:36:22 06/15/19 23 06/14/2022 urina lysis , dipst ick Urobilinogen 1 Not Available [address], [address], 06/12/2022 14:36:22 06/15/19 23 06/14/2022 urina lysis , dipst ick Protein Negati ve Not Available [address], [address], 06/12/2022 14:36:22 06/15/19 23 06/14/2022 urina lysis , dipst ick pH 5.0 Not Available [address], [address], 06/12/2022 14:36:22 06/15/19 23 06/14/2022 urina lysis , dipst ick Blood Negati ve Not Available [address], [address], 06/12/2022 14:36:22 06/15/19 23 06/14/2022 urina lysis , dipst ick Specific [place] 1.005 Not Available [address], [address], 06/12/2022 14:36:22 06/15/19 23 06/14/2022 urina lysis , dipst ick Ketone Negati ve Not Available [address], [address], 06/12/2022 14:36:22 06/15/19 23 06/14/2022 urina lysis , dipst ick Bilirubin Negati ve Not Available [address], [address], 06/12/2022 14:36:22 06/15/19 23 06/14/2022 urina lysis , dipst ick Glucose Negati ve Not Available [address], [address], 06/12/2022 14:36:22 06/15/19 23 06/14/2022 urina lysis , dipst ick Appearance Clear Not Available [address], [address], 06/12/2022 14:36:22 06/15/19 23 06/14/2022 urina lysis , dipst ick Color Yellow Not Available [address], [address], 06/12/2022 14:36:22 Result Notes None recorded. Problems No Known Problems Procedures Surgical History Date Name Laterality Status Provider Name and Address Organization Details Recorded Time 01/18/20 Date of Last Colonoscopy completed Omaira Sanchez [facility] 02/12/2024 12:25:56 06/15/19 23 Date of Last Pap Smear completed Omaira Sanchez [facility] 02/12/2024 12:25:25 Imaging Results None recorded. Procedure Notes None recorded. Medical Equipment None Reported. Allergies Allergen ID Allergen Name Allergen Category Reaction Reaction Severity Criticality Documentation Date Start Date Code Code System Note Provider Name and Address Organization Details Recorded Time 063138 Product containin g penicilli n (product) medicatio n Not available Not available Not available 01/07/20212016 48950 8001 SNOMED Sever ity: Moder ate; Not [...] 05/26 completed Lotrison e 0.05%/1% Cream RxNorm: 010321 Allow Substitu tion: True Refill Denied: No [...] Updated DateTime 06/14/2022 170.18 cm 26.9 kg/m2 28311.89 g 122 mm[Hg] 80 mm[Hg] Nissa Mcdonald [facility] 3 09:40:13 Date Recorded Body weight Body mass index (BMI) Body height Systolic blood pressure Diastolic blood pressure Provider Name and Address Organization Details Last Updated DateTime 02/12/2024 47425.6 3 g 28.2 kg/m2 170.18 cm 127 mm[Hg] 70 mm[Hg] Omaira Sanchez [facility] 4 12:29:11 Social History Question Answer Notes LastModified by Organizat ion Details LastModified Time Tobacco Smoking Status Never Smoker Omaira Sampsonugo null, [facility] 02/12/2024 12:24:20 What Is Your Level Of [...] How Many Children Do You Have? 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 [email or web address] Information not available 06/12/2022 Are You Sexually Active? Yes [email or web address] Information not available 06/12/2022 Do You Use [...] Time Father No current problems or disability [email or web address] Not available 05/18 09:40:58 Mother No current problems or disability [email or web address] Not available 05/18 09:40:58 Medical History Condition Response Other Cancer N High Blood Pressure N Colon Cancer N Cytomegalovirus N Hyperthyroidism N Breast Cancer N Herpes (HSV) N MRSA N Blood Transfusion N Lung Cancer N Hypothyroidism N Depression N Incontinence N Panic Attacks N Neurological Disorder N Deep Vein Thrombosis N Anxiety Disorder N Autoimmune disease N Arthritis N Shingles N Tuberculosis/Positive PPD N Polycystic Ovarian Syndrome N Infertility N Cervical Cancer N Chlamydia N Hematuria N Varicosities N Stroke N Crohn's Disease N Seasonal allergies N Alzheimer's/Dementia N COPD/Emphysema N Endometriosis N HPV/Genital Warts N IBS (Irritable Bowel Syndrome) N History of Abnormal Pap N High Cholesterol N Liver Disease N Fibromyalgia N Kidney Infection N Ulcer N Kidney Disease N HIV N Gallbladder disease N Sickle Cell Disease/Trait N Von Willebrand disease N ADD/ADHD N Eating Disorder N Anemia N Diabetes Mellitus (non-insulin dependent ) N Multiple Sclerosis N Ovarian Problems N Gonorrhea N Frequent Urinary Tract infections N Osteopenia N Headaches/migraines N GERD (reflux) N Ovarian Cancer N Diabetes (insulin dependent) N Seizures/Epilepsy N Breast Problems N Fibroids N Asthma N Heart Attack N Lupus N Endometrial Cancer N Rubella [...] SNOMED-CT Code Diagnosis ICD10 Code Diagnosis Note [id number] ANNY Wisdom [address] [address] 06/14/2022 09:24:21 06/14/2022 10:09:26 Dysuria 75062174 R30.0 Urine dip negative Gynecologi c examination 33196398 Z01.419 56y.o. here for annual exam. - Pap today , discussed natural course of HPV infection, no new exposures. - Routine labs done with PCP - Mammo encouraged to have performed - Colonoscop y Cologard - DEXA at age 66 - RTO for annual or PRN Screening for malignant neoplasm of cervix 878930249 Z12.4 ASCCP guidelines reviewed with pt. Pap collected and sent. Further POC pending lab result review. Pt states understand ing of POC. Screening for osteoporosis 454396368 Z13.820 Screening mammography of bilateral breasts 1572227071 25350 Z12.31 Client advised to perform self-breas t exams and report any changes. Yeast detected 169255489 R89.5 Proceed with taking 2nd tablet rx'd by Urgent Care - Reviewed vulvar hygiene: avoid tight or moist clothing, soaps, Vagisil and other wipes, cotton underwear only and sleep without, unscented detergent - Discussed potential for Rephresh gel if neg test - Start probiotic - RTO for annual or as needed [id number] ANNY Wisdom [facility] [address] [place] [address] 02/12/2024 12:09:55 02/12/2024 12:45:29 Gynecologic examination 52983385 Z01.419 58y.o. here for annual exam.- Pap today , discussed natural course of HPV infection, no new exposures. - Routine labs done with PCP- Mammo- Colonoscop y Cologard- DEXA at age 66- RTO for annual or PRN Screening for osteoporosis 352305566 Z13.820 Depression screening 171 129979 Z13.31 see screening intake tool Screening mammography of bilateral breasts [id number] 59650 Z12.31 Client advised to perform self-breas t exams and report any changes. Midline cystocele 042027 [address]81[address] Maury [...] FEDERAL EMPLOYEE PROGRAM (PPO) 105 Sandi Odonnell [id number] Sandi Odonnell 02/12/2024 1 [place]GRAM ([place]) 105 Sandi Odonnell [id number] Sandi Odonnell Notes Date Note Type Note [...] in the process of Cologard ANNY Wisdom [address] [place], [address], [facility] 06/14/2022 14:15:22 02/12/2024 text/html Annual GYNReport [...] the possibility of a cystocele ANNY Wisdom [address] [facility], [place], [address], [facility] 02/12/2024 13:50:32 OBGyn Episode No OBEpisode recorded.
--- OUTSIDE RECORDS SUMMARY | 2024-05-26 00:21 | XMS_ITS | Patient Health Summary ---
Author Organization [facility] Address [address] [place] [address] Care Team Providers Care Digital Media Associate Name Role Phone Chris Kohler MD Primary Care Provider [phone] Note from [facility],non-owned Affiliates and Associated Physician Practices is amultiple site organization consisting of ambulatory clinics and hospital sitesin [place], [place], [place] and [place]. This disclosure is being madepursuant to the Care Everywhere program and may not contain all informatio navailable regarding this patient. Last updated 17.[facility] Allergies * Penicillins(Urticaria,Rash) -Medium Criticality Medications * [...] Comments Blood Pressure 123/82 01/25/2024 9:34 AM INSTALL AND REPAIR TECHNICIAN Pulse 66 01/25/2024 9:34 AM INSTALL AND REPAIR TECHNICIAN Temperature 36.7 C (98.1 F) 04/30/2020 9:21 AM INSTALL AND REPAIR TECHNICIAN Respiratory Rate 12 06/13/2022 8:38 AM CDT Oxygen Saturation 99% 01/25/2024 9:34 AM INSTALL AND REPAIR TECHNICIAN Inhaled Oxygen Concentration - - Weight 83.8 kg (184 lb 12.8 oz) 01/25/2024 9:34 AM INSTALL AND REPAIR TECHNICIAN Height 170.2 cm (5' 7 ) 06/13/2022 [...] Right 2Vw or More (01/25/2024 10:12 AM INSTALL AND REPAIR TECHNICIAN) Anatomical Region Laterality Modality Upper Extremity Radiographic Melanie ging 01/25/2024 2:38 PM INSTALL AND REPAIR TECHNICIAN Narrative 01/25/2024 2:41 PM INSTALL AND REPAIR TECHNICIAN EXAM: XR CERVICAL SPINE 2 OR 3VW, [...] MD on 01/25/2024 2:41 PM Hillary Mcclure MANAGEMENT TRAINEE PROGRAM STORES-FAMILY PRESERVATION CASEWORKER DI AGNOSTIC IMAGING ORDERABLES * XR Cervical Spine 2 or 3Vw (01/25/2024 10:11 AM INSTALL AND REPAIR TECHNICIAN) Anatomical Region Laterality Modality Spine Radiographic Melanie ging 01/25/2024 2:38 PM INSTALL AND REPAIR TECHNICIAN Narrative 01/25/2024 2:41 PM INSTALL AND REPAIR TECHNICIAN EXAM: XR CERVICAL SPINE 2 OR 3VW, [...] Sanya Early MD on 01/25/2024 2:41 PM iHllary Mcclure MANAGEMENT TRAINEE PROGRAM STORES-FAMILY PRESERVATION CASEWORKER DI AGNOSTIC IMAGING ORDERABLES * US EXTREMITY LEFT LTD (NON JOINT) (07/04/2023) Anatomical Region Laterality Modality Lower Extremity, Upper Extremity Ultrasound 07/04/2023 Samreen Friedman MANAGEMENT TRAINEE PROGRAM STORES-FAMILY PRESERVATION CASEWORKER US ORDERABLES * LAB RESULTS ORDER (07/09/2022) Only the most recent of4 resultswithin the time period is included. 07/09/2022 Narrative 07/09/2022 Ordered by an unspecified provider. Scanned Document LAB - THERAPEUTIC DR MCCRACKEN MONITORING ORDERABLES * [id number] COLOGUARD TEST *Associate with Z12.11 OR Z12.12 Dx Codes* (06/20/2022 6:10 AM CDT) Cologuard Negative Negative [facility] Comment: NEGATIVE TEST RESULT. A negative [...] Steward et al, N Engl J Med 2014;370(14):2020-9560) The normal value (reference range) for this assay is negative. COLOGUARD RE-SCREENING RECOMMENDATION: Periodic colorectal cancer screening is an important part of preventive healthcare for asymptomatic individuals at average risk for colorectal cancer. Following a negative Cologuard result, the [place] Cancer Society and U.S. Multi-Society Task Force screening guidelines recommend a Cologuard re-screening interval of 3 years. References: [place] [employer] Guideline for Colorectal Cancer Screening: https://www.cancer.org/cancer/anusq-jbwpra-ffggjd/nsjzfdkax-uqkwyhqog-vnfutvu/ acs-recommendations.html.; Johny DK, Nirmal CR, Manuela ElmoreK, Colorectal Cancer Screening: Recommendations for Physicians and Patients from the U.S. Multi-Society Task Force on Colorectal Cancer Screening , Am J Gastroenterology 2017; 112:7533-4504. TEST DESCRIPTION: Composite algorithmic analysis of stool [...] Steward et al, N Engl J Med 2014;370(14):1048-5836.) Cologuard may produce a false negative or false positive result (no colorectal cancer or precancerous polyp present at colonoscopy follow up). A negative Cologuard test result does not guarantee the absence of CRC or advanced adenoma (pre-cancer). The current Cologuard screening interval is every 3 years. ([place] Cancer Society and U.S. Multi-Society Task Force). Cologuard performance data in a 10,000 patient pivotal study using colonoscopy as the reference method can be accessed at the following location: www.[employer]/results. Additional description of the Cologuard test process, warnings and precautions can be found at www.[employer]anc[employer]. Stool STOOL SPECIMEN / Unknown 06/20/2022 6:10 AM CDT 06/21/2022 4:07 PM CDT Hillary Mcclure MANAGEMENT TRAINEE PROGRAM STORES-FAMILY PRESERVATION CASEWORKER LA B - CHEMISTRY ORDERABLES [facility] [address] [place] [address] [place] [address] [facility] [address] [place] [address]. [place] [address] * TSH REFLEX FREE T4 (06/13/2022 9:01 AM CDT) TSH with Reflex FT4 3.38 mIU/L [facility] Comment: Reference Range > or = 20 Years 0.40-4.50 Ranges First trimester 0.26-2.66 Second trimester 0.55-2.73 Third trimester 0.43-2.91 Test Performed at: [facility] [id number] [place] [address] VIPUL GARDNER MD Blood BLOOD SPECIMEN / Unknown 06/13/2022 9:01 AM CDT 06/13/2022 9:01 AM CDT Hillary Handley Ren MANAGEMENT TRAINEE PROGRAM STORES-FAMILY PRESERVATION CASEWORKER LA B - CHEMISTRY ORDERABLES [facility] [address] [place] [address] * CBC WITH DIFFERENTIAL (06/13/2022 9:01 AM [...] 0.9 % [facility] Comment: Test Performed at: [facility] [address] [place] [address] VIPUL GARDNER MD Blasts [facility] nRBC [facility] Comments [facility] Comment: Test Performed at: [facility] [address] [place] [address] VIPUL GARDNER MD Blood BLOOD SPECIMEN / Unknown 06/13/2022 9:01 AM CDT 06/13/2022 9:01 AM CDT Hillary Mcclure MANAGEMENT TRAINEE PROGRAM STORES-FAMILY PRESERVATION CASEWORKER LA B - HEMATOLOGY ORDERABLES [facility] [address] [place] [address] * (ABNORMAL) COMPREHENSIVE METABOLIC PANEL (06/13/2022 9:01 [...] 29 U/L [facility] Comment: Test Performed at: [facility] [address] [facility] [place] [address] VIPUL GARDNER MD Blood BLOOD SPECIMEN / Unknown 06/13/2022 9:01 AM CDT 06/13/2022 9:01 AM CDT Hillary Emmanuelle SMITH LA B - CHEMISTRY ORDERABLES Performing Organization Address [facility] Co de Phone Number [place] [address] [place] [address] * LIPID PROFILE (06/13/2022 9:01 AM CDT) [...] LDL-C. Nestor JACOBS et al. CHRISTOPHER. 2013;310(19): 8605-3131 (http://education.[employer]/faq/ZPC878) CHOL/HDLC RATIO 2.8 <5.0 (calc) [facility] Non HDL Cholesterol 112 <130 mg/dL (calc) [facility] Comment: For patients with diabetes plus 1 major ASCVD risk factor, treating to a non-HDL-C goal of <100 mg/dL (LDL-C of <70 mg/dL) is considered a therapeutic option. Test Performed at: [facility] [address] [place] [address] VIPUL GARDNER MD Blood BLOOD SPECIMEN / Unknown 06/13/2022 9:01 AM CDT 06/13/2022 9:01 AM CDT Hillary Emmanuelle SMITH LA B - CHEMISTRY ORDERABLES Performing Organization Address [facility] Co de Phone Number [address] [address] [place] [address] * XR LUMBAR SPINE 2 OR 3VW [...] DO DIAGNOSTIC IMAGING O RDERABLES Care Teams Digital Media Associate Relationship Specialty Start Date End Date Chris Kohler MD [address] [id number] PCP - General Family Medicine 07/10/22
--- OUTSIDE RECORDS SUMMARY | 2024-05-26 00:21 | XMS_ITS | Referral Summary ---
Author Organization [facility] Address [address] [place] [address] Care Team Providers Care Internet Architect Name Role Phone Chris Kohler MD Primary Care Provider [phone] Source Comments [facility],non-owned Affiliates and Associated Physician Practices is amultiple site organization consisting of ambulatory clinics and hospital sitesin [place], [place], [place] and [place]. This disclosure is being madepursuant to the Care Everywhere program and may not contain all information available regarding this patient. Last updated 17.[facility] Allergies Active Allergy Reactions Criticality Noted Date [...] Comments Blood Pressure 123/82 01/25/2024 9:34 AM SOFTWARE QUALITY ASSURANCE SPECIALIST Pulse 66 01/25/2024 9:34 AM SOFTWARE QUALITY ASSURANCE SPECIALIST Temperature 36.7 C (98.1 F) 04/30/2020 9:21 AM SOFTWARE QUALITY ASSURANCE SPECIALIST Respiratory Rate 12 06/13/2022 8:38 AM CDT Oxygen Saturation 99% 01/25/2024 9:34 AM SOFTWARE QUALITY ASSURANCE SPECIALIST Inhaled Oxygen Concentration - - Weight 83.8 kg (184 lb 12.8 oz) 01/25/2024 9:34 AM SOFTWARE QUALITY ASSURANCE SPECIALIST Height 170.2 cm (5' 7 ) 06/13/2022 [...] Recently Relevant to Health Maintenance Results * [id number] COLOGUARD TEST *Associate with Z12.11 OR Z12.12 Dx Codes* (06/20/2022 6:10 AM CDT) Cologuard Negative Negative [facility] Comment: NEGATIVE TEST RESULT. A [...] Alberto Tsai al, N Engl J Med 2014;370(14):0544-0138) The normal value (reference range) for this assay is negative. COLOGUARD RE-SCREENING RECOMMENDATION: Periodic colorectal cancer screening is an important part of preventive healthcare for asymptomatic individuals at average risk for colorectal cancer. Following a negative Cologuard result, the [place] Cancer Society and U.S. Multi-Society Task Force screening guidelines recommend a Cologuard re-screening interval of 3 years. References: [place] [employer] Guideline for Colorectal Cancer Screening: https://www.cancer.org/cancer/rtvoz-xijtqr-zcbyth/hgtwicknm-ctuyszlnw-xlycaex/ acs-recommendations.html.; Johny DK, Nirmal PHAM, Manuela ElmoreK, Colorectal Cancer Screening: Recommendations for Physicians and Patients from the U.S. Multi-Society Task Force on Colorectal Cancer Screening , Am J Gastroenterology 2017; 112:0466-1101. TEST DESCRIPTION: Composite algorithmic analysis of stool [...] Alberto Tsai al, N Engl J Med 2014;370(14):0646-5533.) Cologuard may produce a false negative or false positive result (no colorectal cancer or precancerous polyp present at colonoscopy follow up). A negative Cologuard test result does not guarantee the absence of CRC or advanced adenoma (pre-cancer). The current Cologuard screening interval is every 3 years. ([place] [employer] Society and U.S. Multi-Society Task Force). Cologuard performance data in a 10,000 patient pivotal study using colonoscopy as the reference method can be accessed at the following location: www.[employer]/results. Additional description of the Cologuard test process, warnings and precautions can be found at www.[employer]am[employer].com. Stool STOOL SPECIMEN / Unknown 06/20/2022 6:10 AM CDT 06/21/2022 4:07 PM CDT Hillary Mcclure NEWS COPY EDITOR-LAUREN ROMO B - CHEMISTRY ORDERABLES Performing Organization Address City/State/[facility] Co de Phone Number [facility] [address] [place] [address] [facility] [address] [place] [address] * LIPID PROFILE (06/13/2022 9:01 AM CDT) [...] factors. LDL-C is now calculated using the Nestor-Shelton calculation, which is a validated novel method providing better accuracy than the Friedewald equation in the estimation of LDL-C. Nestor SS et al. CHRISTOPHER. 2013;310(19): 9019-2694 (http://education.nothingGrinder.ArQule/faq/KML738) CHOL/HDLC RATIO 2.8 <5.0 (calc) [facility] Non HDL Cholesterol 112 <130 mg/dL (calc) [facility] Comment: For patients with diabetes plus 1 major ASCVD risk factor, treating to a non-HDL-C goal of <100 mg/dL (LDL-C of <70 mg/dL) is considered a therapeutic option. Test Performed at: [facility] [id number] [phone] VIPUL GARDNER MD Blood BLOOD SPECIMEN / Unknown 06/13/2022 9:01 AM CDT 06/13/2022 9:01 AM CDT Hillary Mcclure NEWS COPY EDITOR-DISABILITY BENEFITS SPECIALIST LA B - CHEMISTRY ORDERABLES [facility] [address] [place] [address] from Last 3 Months or Most Recently Relevant to Health Maintenance Care Teams Internet Architect Relationship Specialty Start Date End Date Chris Kohler MD [address] [phone] PCP - General Family Medicine 07/10/22
--- OUTSIDE RECORDS SUMMARY | 2024-05-26 00:21 | XMS_ITS | Data Portability ---
Author Organization [place] [facility], [facility] Address [address] [place] [id number] Assessment No assessment recorded. Plan of Treatment Reminders Order Date Submit Date Provider Last Modified By Organization Details Last Modified Time Details Appointments None recorded. Lab urinalysis, dipstick, auto 2022 023 [facility], [address] [place] [address], [phone], 17:01:37 culture, urine + sensitivity [address] Registration Dept[address] [place] [address], [address], 09:28:52 Referral None recorded. Procedures None recorded. Surgeries None recorded. Imaging None recorded. Medication Orders fluconazole 150 mg tablet 2022 023 [facility], [address] [place], [address], 17:00:39 Patient TargetsNo targets recorded. Patient InstructionsNo [...] Rage: Negative roger/mcg) Negati ve Not Available [address], [address], 06/11/2022 16:36:26 06/12/19 23 06/11/2022 urina lysis , dipst ick, auto Nitrite (reference rage: Negative mg/dL) negati ve Not Available [address], [address], 06/11/2022 16:36:26 06/12/19 23 06/11/2022 urina lysis , dipst ick, auto Urobilinogen (reference range: 0.2-1 ng/dL) 0.2 Not Available [address], [address], 06/11/2022 16:36:26 06/12/19 23 06/11/2022 urina lysis , dipst ick, auto Protein (reference range: negative mg/dL): Negati ve Not Available [address], [address], 06/11/2022 16:36:26 06/12/19 23 06/11/2022 urina lysis , dipst ick, auto pH (reference range: 5-7) 5.5 Not Available [address], [address], 06/11/2022 16:36:26 06/12/19 23 06/11/2022 urina lysis , dipst ick, auto Blood (reference range: negative Negati ve Not Available [address], [address], 06/11/2022 16:36:26 06/12/19 23 06/11/2022 urina lysis , dipst ick, auto Specific Underwood (reference range 1.005-1.030) 1.025 Not Available [address], [address], 06/11/2022 16:36:26 06/12/19 23 06/11/2022 urina lysis , dipst ick, auto Ketone (reference range: negative mg/dL) Negati ve Not Available [address], [address], 06/11/2022 16:36:26 06/12/19 23 06/11/2022 urina lysis , dipst ick, auto Bilirubin (reference range: negative mg/dL) Negati ve Not Available [address], [address], 06/11/2022 16:36:26 06/12/19 23 06/11/2022 urina lysis , dipst ick, auto Glucose (reference range: negative mg/dL) Negati ve Not Available [address], [address], 06/11/2022 16:36:26 06/12/19 23 06/11/2022 urina lysis , dipst ick, auto Appearance Slight ly Cloudy Not Available [address], [address], 06/11/2022 16:36:26 06/12/19 23 06/11/2022 urina lysis , dipst ick, auto Color Yellow Not Available [address], [address], 06/11/2022 16:36:26 Result Notes None recorded. Problems Name Problem SNOMED Code Status Onset Date Resolution Date Notes Provider Name and Address Organization Details Recorded Time Dys[facility] 19128789 [facility] 16:36:28 Candidiasis of vagina 83423068 Active 2022 Deidre Bay Iyer ANTIQUE COLLECTOR [address] [place] [address], [address] , [facility] 3 16:57:04 Menopausal syndrome 607201708 Active Not Available [facility] 3 17:07:27 Seasonal allergy 127308826 Active 2017 Not Available [facility] 3 17:07:27 Dystrophy of vulva 51995739 Active Not Available [facility] 3 17:07:27 Hypothyroidis m 95751615 Active 2020 Not Available [facility] 3 23:45:31 Problem Notes None recorded. Medical Equipment None Reported. Allergies Allergen ID Allergen Name Allergen Category Reaction Reaction Severity Criticality Documentation Date Start Date Code Code System Note Provider Name and Address Organization Details Recorded Time 356732 Product containin g penicilli n (product) medicatio n rash Not available Not available 03/26/2022 97882 8001 SNOMED Not Available [facility] 3 17:08:22 Medications Name Sig Start Date [...] % 80 /min 16 /min 97.7 [degF] 72055.8 1 g 114 mm[Hg] 68 mm[Hg] Not [...] 97 % 0 64 /min 98.9 [degF] 86888.2 8 g 98 mm[Hg] 60 mm[Hg] Not Available [facility] 3 23:44:59 Date Recorded Body height Body mass index (BMI) Body weight Pain severity - 0-10 verbal numeric rating [Score] - Reported Respiratory rate Body temperature Heart rate Oxygen saturation Oxygen saturation in Arterial blood by Pulse oximetry Systolic blood pressure Diastolic blood pressure Provider Name and Address Organization Details Last Updated DateTime 3 172.72 cm 25.1 kg/m2 92991.7 4 g 5 18 /min 98.2 [degF] 64 /min 99 % 99 % 120 mm[Hg] 66 mm[Hg] Kaitlynn Johnson [facility] 3 16:42:15 Social History Question Answer Notes LastModified by Organizat ion Details LastModified Time Tobacco Smoking Status Never Smoker Not Available [facility] 03/26/2022 23:44:13 In The 14 Days Before Symptom Onset, Have You Had Close Contact With A Laboratory-confirm ed COVID-19 While That Case Was Ill? No [id number] Information not available 03/26/2022 In The 14 Days Before Symptom Onset, Have You Had Close Contact With A Person Who Is Under Investigation For COVID-19 While That Person Was Ill? No [id number] Information not available 03/26/2022 What Was The Date Of Your Most Recent Tobacco Screening? 01/08/2021 [id number] Information not available 03/26/2022 Have You Recently Traveled Abroad? No [id number] Information not available 03/26/2022 Do You Or Have You Ever Used Any Other Forms Of Tobacco Or Nicotine? No [id number] Information not available 03/26/2022 Sex: Unknown [...] SNOMED-CT Code Diagnosis ICD10 Code Diagnosis Note [id number] [address] [address] 01/08/2021 00:00:00 01/08/2021 10:04:[id number] [address] 03/22/2021 00:00:00 03/22/2021 12:16:11 [id number] Deidre Iyer ANTIQUE COLLECTOR [address] [address] 06/11/2022 16:18:13 06/12/2022 06:59:30 Dysuria 44847880 R30.0 UA negativeSy mptoms questionab le for UTIWill send for culture and if C&S shows bacteria will treat based on susceptibi lity report Candidiasis of vagina 72 203904 B37.31 patient was instructed to avoid sexual [...] [employer] ([employer]) 105 Sandi Odonnell [id number] Sandi Odonnell Notes Date Note Type Note Provider Name and Address Organization Details Recorded Time 06/11/2022 text/html 56 y/o female presents to office with c/o burning when urinating, and itching. Symptoms have been present for about a week. Pt was rx bactrim but did not help. Denies flank pain, urgency, fevers. Deidre Iyer ANTIQUE COLLECTOR [address] [place] [address], [phone], [facility] 06/11/2022 17:02:52 OBGyn Episode No OBEpisode recorded.
--- NOTE | 2024-05-26 04:38 | WPDHPUPDATE1 ---
History and Physical Update Update Date/Time: 05/26/24 04:38 History and Physical has been reviewed, including an updated exam of the patient. There are NO changes in the patient's condition. Risks, benefits, and alternatives have been discussed and questions answered. Patient agrees to proceed with procedure.
--- NOTE | 2024-05-26 07:28 | WPDHPUPDATE1 ---
History and Physical Update Update Date/Time: 05/26/24 07:28 History and Physical has been reviewed, including an updated exam of the patient. There are NO changes in the patient's condition. Risks, benefits, and alternatives have been discussed and questions answered. Patient agrees to proceed with procedure.
[2024-05-26] MEDS: LACTATED RINGERS 1,000 ML 30 ML IV CONT ×2 (10:45→14:09)
[2024-05-26] MEDS: ACETAMINOPHEN 500 MG TABLET 1000 MG PO (10:54)
[2024-05-26] MEDS: KETOROLAC 15 MG/ML VIAL (*BKC) IV PUSH ×2 (10:54→19:38)
--- NOTE | 2024-05-26 11:09 | WPDANESEPPF ---
Anes - Initial Pre Proc Eval Procedure: Operation Date: 05/26/24 12:00 Proposed Procedures p Robotic Sacrocolpopexy, Urethral Sling - Maury Patterson MD s Robotic Supracervical Hysterectomy with Possible Bilateral Salpingo-oophorectomy - Sohan Zeng MD Date/Time: 05/26/24 11:09 Surgeon: Maury Patterson MD Pre Op Diagnosis: uterine prolapse, cystocele, stress incont Patient Data Age: 58 Gender: F Height: 1.68 m Weight: 81.5 kg Last Vital Signs Temp 37.1 C 05/13/24 13:50 Pulse 76 05/13/24 13:50 Resp 14 05/13/24 13:50 BP 132/67 05/13/24 13:50 Pulse Ox 100 05/13/24 13:50 O2 Del Method Room Air 05/13/24 13:50 Allergies Allergy/AdvReac Type Severity Reaction Status Date / Time Penicillins Allergy Unknown Hives Verified 05/26/24 11:07 Home Medications ?Medication ?Instructions ?Recorded ?Confirmed ?Type No Home Medications 05/13/24 05/13/24 History Patient hx anesthesia problems: none Family hx anesthesia problems: none Results Review: All pre-operative results and documents have been reviewed as part of the pre-operative evaluation. [facility] Past Medical History Medical History (Updated 05/26/24 @ 11:09 by Sohan Bernal MD) Overweight Social History Social History Smoking status: Never smoker Alcohol intake: current Drinks per week: 2 Substance use: never Living arrangements: with family Additional living arrangements comments: Spiritual care concerns: No Anes - Eval Final PreProcedure Day of Procedure 05/26/24 11:09 Patient weight: overweight Heart: regular rate and rhythm Lungs: clear to auscultation Airway: Mallampati scale class II Neurological: alert and oriented Last oral intake: >/= 8 hours ASA classification: II Emergent: no Anesthetic plan: proceed Anesthesia type and monitoring: general ETT and standard monitoring Results Review: All pre-operative results and documents have been reviewed as part of the pre-operative evaluation. Informed Consent: The patient's anesthetic plan and its attendant risks and benefits were discussed with the patient/family/POA. Questions were solicited and answers provided to the satisfaction of the patient/family/POA.
[2024-05-26] MEDS: SCOPOLAMINE 1 MG PATCH 1 PATCH TRANSDERM (11:15)
[2024-05-26] MEDS: metroNIDAZOLE 500 MG/ISO 100ML 500 MG/100 ML BAG 100 MG IVPB ×2 (11:58→22:54)
[2024-05-26] MEDS: ceFAZolin 2 GM/D5W 50 ML 2 GM/50 ML BAG IVPB (12:05)
[2024-05-26] MEDS: BUPIVACAINE/EPINEPHRINE 0.5% 50 ML VIAL 30 ML INFILTRATE (12:23)
--- NOTE | 2024-05-26 12:37 | P.OP_ITS ---
Procedure Note - Detailed Date of Procedure 05/26/24 Pre-op Diagnosis uterine prolapse, cystocele, stress incont Post-op Diagnosis Same Procedure Performed Robotic supracervical hysterectomy and bilateral salpingo-oophorectomy Surgeon Sohan Zeng MD Anesthesia General Indications 58-year-old female with uterine prolapse stress urinary incontinence admitted for robotic supracervical hysterectomy bilateral salpingo-oophorectomy as well as sacral colpopexy and sling Findings Uterine prolapse. Normal-appearing ovaries tubes uterus. Description of Procedure The patient was prepped draped in sterile fashion placed in dorsal lithotomy position. Under excellent general trach anesthesia weighted speculum placed in posterior fornix vagina. Anterior lip of the cervix grasped with single-tooth tenaculum. The Wolf's cannula was under the cervix and attached to the single- tooth to be used later for uterine manipulation. The bladder was drained a 16 Kosovan catheter and the gloves were changed. Dr. Gonzalez proceeded to dock the robot please see his operative report from there. Once the robot had been docked attention was turned to the international student counselor. The left round ligament was grasped, burned, cut. Anterior bladder flap formed by sharply dissecting the peritoneum away from cervix and uterus caudally to the opposite round ligament which was clamped, burned, cut. Next the left infundibulopelvic structure was skeletonized to remove the left ovary and tube this was clamped, burned, cut and brought to level of previously cut round ligament. In similar fashion to remove the right ovary and tube, the infundibulopelvic structure was skeletonized clamping burning cutting and bringing this to level of the previously cut round ligament. The cardinal broad ligaments and then serially skeletonized clamping burning cutting and bringing these down the lateral edge of the uterus until the large uterine vessels could be seen. These were individually clamped, burned, cut. In similar fashion on the right the cardinal broad ligaments were serially skeletonized clamping burning cutting and hugging the cervix uterus until the large blood vessels could be seen right these individually clamped, burned, cut. Blanching of the uterus was noted. The supracervical incision made the this uterus ovaries and tubes placed in an Endo-Catch. Hemostasis was assured blood loss was [id number] to this point Dr. Patterson took over from there the patient's was in satisfactory condition. There were no complications to this point Estimated Blood Loss 25 Drains No Packing No Pathology Yes Complications No immediate complications Condition Stable Disposition No change
--- NOTE | 2024-05-26 12:40 | P.DS_ITS ---
DS: Admitting Diagnosis Discharge Date 05/26/2024 Admitting Diagnosis Stress urinary incontinence/cystocele/uterine prolapse DS: Discharge Diagnosis Discharge Diagnosis (1) Cystocele with incomplete uterovaginal prolapse: Code(s): N81.2 - Incomplete uterovaginal prolapse Status: Acute (2) ABIMAEL (stress urinary incontinence, female): Code(s): N39.3 - Stress incontinence (female) (male) Status: Acute (3) Uterine prolapse: Code(s): N81.4 - Uterovaginal prolapse, unspecified Status: Acute DS: Summary Hospital Course Reason for hospitalization: Patient was admitted for robotic supracervical hysterectomy bilateral salpingo- oophorectomy sacral colpopexy and sling on 05/25/2024 Hospital Course: Patient's hospital course unremarkable. She remained afebrile. She was up, voiding without difficulty, eating regular diet, ambulating, and generally without complaints. Time Spent with Patient Time attestation: Total time spent providing and/or coordinating discharge services: Exam Const: General: cooperative, healthy appearing and comfortable Nutritional Appearance: average body habitus HENMT: Head: normal to inspection Resp: Effort & Inspection: normal respiratory effort Cardio: Rate: regular rate Rhythm: regular rhythm Heart sounds: S1 normal heart sound present and S2 normal heart sound present GI: Inspection: normal to inspection and incision (Wounds are clean dry and intact) DS: Data Data Completed and Pending Pending studies at discharge: Pending at discharge 05/26/24 12:32 Surgical [PTH] Routine Discharge Plan Discharge Patient Disposition: Home, Self-Care Discharge Instructions: No lifting >20lb, exercise for 6 weeks No tub bath or pool for 2 weeks No intercourse for 6 weeks Remove the Scopolamine patch that was placed behind your ear in 72 hours or less. Wash your hands after touching. Patient Language: [place] Islander Stand Alone Forms: General Discharge Instructions Follow-up/Referrals: Sohan Paul MD [Physician] - Discharge Medications: New hydrocodone-acetaminophen 5-325 mg tablet 1 tablet PO Q6H PRN (Reason: pain) Qty: 20 0RF docusate sodium [Colace] 100 mg capsule 100 mg PO BID Qty: 40 0RF
--- NOTE | 2024-05-26 14:15 | P.OP_ITS ---
Procedure Note - Detailed Date of Procedure 05/26/24 Pre-op Diagnosis uterine prolapse, stress incont Post-op Diagnosis Same Procedure Performed Robotic assisted laparoscopic sacral colpopexy Urethral sling Cystoscopy Surgeon Maury Patterson MD Anesthesia General Indications A woman with uterine prolapse as well as stress incontinence. She desires surgical correction. She is here for the above. She understands risks of bleeding, infection, diskitis, damage to surrounding organs, bowel injury, bowel obstruction, mesh related complications including exposure and extrusion, postoperative voiding dysfunction including incontinence and retention, need for ancillary procedures, dyspareunia, recurrence of prolapse, and other perioperative intraoperative postoperative complications. She agrees to proceed. Findings See below Description of Procedure She was correctly identified. Informed consent obtained. She from the operating room. She was given general anesthesia. She was given appropriate perioperative antibiotics. She was placed a low lithotomy position. Pressure points were padded. A time-out performed. I marked out the skin 3 fingerbreadths cephalad to the umbilicus. I anesthetized the skin. I incised the skin. I dissected down to the fascia. I grasped the fascia with Kayla clamps. I entered the fascia sharply in a Walsh type technique. I placed sutures for later fascial closure. I placed a midline trocar. I examined the abdomen. There is no sign of any injury. Under direct vision I placed 2 additional trocars in the right upper quadrant and 2 additional trocars the left upper quadrant. She was placed in steep Trendelenburg. The robot was docked. Her windows application developer completed their portion of the procedure. Please see that operative report for details. I then sat at the console. The Sizer in the vagina created plane on the anterior and posterior vaginal wall. I took great care not to injure the vagina, bladder, or rectum. I introduced the mesh into the abdomen. I sewed the anterior leaflet of mesh on the anterior vaginal wall. I sewed the posterior leaflet of mesh on the posterior vaginal wall. This was done with several sutures of 2 0 [place]-Christian. I reflected the colon laterally. I opened the posterior peritoneum over the sacral promontory. I carried this into the cul-de-sac. I freed up the edges for later retroperitonealization. I located the anterior longitudinal ligament the sacrum. I cleaned off all fatty tissues. I then tensioned my mesh appropriately. I did a vaginal exam the bedside. I assured prolapse reduction without undue tension. I then sewed the proximal leaflet of mesh onto the anterior longitudinal ligament of the sacrum with 3 sutures of 2 0 [place]-Christian. I took great care to the ligament only and not the vertebral disc. I then used a 2 0 Monocryl to completely and meticulously retroperitonealized all mesh. I allowed the colon to go back to its normal anatomic location. There is no sign of any impingement. The specimen was then removed. All ports removed. Fascia was tied down. Skin was closed with Monocryl and surgical glue. She was repositioned and prepped for urethral sling. I marked out the inner thigh incisions. I anesthetized the skin and made the incisions. I then anesthetized the anterior vaginal wall at the mid urethra. I made a 1 cm incision. I dissected out laterally taking great care not to injure the refilled vaginal wall. I passed the helical trocars. I did this 1st on the left and then on the right. This was done from the thigh incision towards the vaginal incision. Sling was connected to the trocars and brought out the thigh incision. I tensioned the sling appropriately. I cut and the plastic sheaths. I closed the incision with 2 0 Vicryl. I then performed cystoscopy. There was no tumors or surgical artifact. Both ureters were seen to excrete clear yellow urine. There is no surgical artifact in the bladder or urethra. I cut the excess sling material. Close incision with glue. She was awakened and transferred to PACU in stable condition. Implants Sacral colpopexy mesh Urethral sling Estimated Blood Loss 25 Packing No Pathology None sent Complications No immediate complications Condition Stable Disposition PACU
[2024-05-26] MEDS: fentaNYL CITRATE INJ (*CRX) 100 MCG/2 ML VIAL 25 MCG IV PUSH ×8 (14:36→15:14)
[2024-05-26] MEDS: KCL 20 MEQ/D5/0.45% SOD CHL 1,000 ML 100 ML IV CONT (16:21)
[2024-05-26] MEDS: MORPHINE SULFATE (*CRX) 2 MG/ML INJ IV PUSH (16:27)
[2024-05-26] MEDS: ACETAMINOPHEN 325 MG TABLET 650 MG PO (17:45)
[2024-05-26] MEDS: ONDANSETRON INJ 4 MG/2 ML VIAL IV PUSH (18:01)
[2024-05-26] MEDS: ceFAZolin 1 GM/NS 50 ML 1 GM/50 ML BAG IVPB (19:38)
[2024-05-26] MEDS: SIMETHICONE 80 MG TAB.CHEW PO (22:54)
[2024-05-26] MEDS: HYDROcodone/acetaminophen (*CRX) 5-325 MG TABLET 1 TAB PO (22:54)
[2024-05-27 00:41] VITALS: BP 95/55; PULSE 69; RESP 14; TEMP 36.8; O2SAT 97
[2024-05-27] MEDS: ACETAMINOPHEN 325 MG TABLET 650 MG PO ×2 (04:43→11:16)
[2024-05-27] MEDS: ceFAZolin 1 GM/NS 50 ML 1 GM/50 ML BAG IVPB (04:43)
[2024-05-27] MEDS: KETOROLAC 15 MG/ML VIAL (*BKC) IV PUSH ×2 (04:43→11:17)
[2024-05-27 04:45] VITALS: BP 113/63; PULSE 62; RESP 16; TEMP 37; O2SAT 99
--- NOTE | 2024-05-27 07:24 | PM.GYNPNOP ---
[employer] - A/P Assessment and plan (1) Uterine prolapse: Code(s): N81.4 - Uterovaginal prolapse, unspecified Status: Acute (2) Cystocele with incomplete uterovaginal prolapse: Code(s): N81.2 - Incomplete uterovaginal prolapse Status: Acute (3) ABIMAEL (stress urinary incontinence, female): Code(s): N39.3 - Stress incontinence (female) (male) Status: Acute Plan home Postoperative Procedures: Procedures Operation Date: 05/26/24 12:00 Actual Procedure Side Surgeon p Robotic Sacrocolpopexy, Urethral Sling Not Applicable Maury Patterson MD s Robotic Supracervical Hysterectomy with Bilateral Salpingo-oophorectomy Bilateral Sohan Zeng MD Time Spent With Patient Time: Total time spent is greater than 50% in coordination of care (as documented) at patient's floor/unit and/or counseling patient: Time with patient: less than 15 minutes [employer]- PN:Subj Post-Op Subjective Date/time seen: 05/27/24 07:24 Subjective: patient reports feeling better, patient has no complaints, patient desires discharge, pain is well controlled and patient is tolerating oral intake Exam Const: General: cooperative, healthy appearing and comfortable Nutritional Appearance: average body habitus HENMT: Head: normal to inspection Resp: Effort & Inspection: normal respiratory effort Cardio: Rate: regular rate Rhythm: regular rhythm Heart sounds: S1 normal heart sound present and S2 normal heart sound present GI: Inspection: normal to inspection and incision (Wounds are clean dry and intact) [employer] - PN: Obj Data Vital Signs Vital Signs: Vital Signs - 24 hr 05/26/24 09:43 05/26/24 14:09 05/26/24 14:15 Temperature 98.7 F 97.7 F Pulse Rate 68 60 66 Respiratory Rate 16 20 8 L Blood Pressure 135/78 112/62 117/63 Pulse Oximetry 100 100 100 Oxygen Delivery Room Air Simple Face Mask Simple Face Mask Oxygen Flow Rate 8 8 05/26/24 14:24 05/26/24 14:30 05/26/24 14:45 Temperature Pulse Rate 66 65 Respiratory Rate 9 L 10 L Blood Pressure 136/81 136/81 Pulse Oximetry 100 100 100 Oxygen Delivery Simple Face Mask Simple Face Mask Simple Face Mask Oxygen Flow Rate 8 8 8 05/26/24 14:55 05/26/24 15:00 05/26/24 15:15 Temperature Pulse Rate 75 65 Respiratory Rate 16 8 L Blood Pressure 125/77 120/70 Pulse Oximetry 100 100 98 Oxygen Delivery Room Air Room Air Room Air Oxygen Flow Rate 05/26/24 15:30 05/26/24 16:00 05/26/24 16:00 Temperature 98.2 F Pulse Rate 69 76 Respiratory Rate 11 L 14 Blood Pressure 124/74 133/86 Pulse Oximetry 99 99 Oxygen Delivery Room Air Room Air Oxygen Flow Rate 05/26/24 19:45 05/26/24 19:45 05/27/24 00:41 Temperature 98.3 F 98.2 F Pulse Rate 78 78 69 Respiratory Rate 14 14 14 Blood Pressure 111/67 95/55 L Pulse Oximetry 98 98 97 Oxygen Delivery Room Air Oxygen Flow Rate 05/27/24 04:45 Temperature 98.6 F Pulse Rate 62 Respiratory Rate 16 Blood Pressure 113/63 Pulse Oximetry 99 Oxygen Delivery Oxygen Flow Rate Intake/Output Intake/Output: Intake & Output 05/24/24 05/26/24 05/26/24 05/27/24 23:59 00:59 23:59 23:59 Intake Total 840 Output Total 600 800 Balance 240 -800 Meds/Results Medications: Active Medications Generic Name Dose Route Start Last Admin Trade Name Freq PRN Reason Stop Dose Admin Acetaminophen 650 mg 05/26/24 14:17 05/27/24 04:43 Acetaminophen 325 Mg Tablet PO 650 mg Q4H PRN Administration Mild Pain (1-3) or Fever Hydrocodone Bitart/Acetaminophen 1 tab 05/26/24 14:17 05/26/24 22:54 Hydrocodone/Acetaminophen (*Crx) 5-325 Mg Tablet PO 1 tab Q4H PRN Administration Pain Rated 4-5 Cephalexin HCl 500 mg 05/27/24 17:00 Cephalexin 500 Mg Capsule PO QID JUSTINO Diphenhydramine HCl 25 mg 05/26/24 14:17 Diphenhydramine Hcl Inj 50 Mg/Ml Vial IV PUSH Q6H PRN Itching Docusate Sodium 100 mg 05/27/24 09:00 Docusate Sodium 100 Mg Capsule PO DAILY JUSTINO Enoxaparin Sodium 30 mg 05/27/24 09:00 Enoxaparin 30 Mg/0.3 Ml Syringe SUB-Q DAILY JUSTINO Potassium Chloride/Dextrose/Sod Cl 1,000 mls @ 100 mls/hr 05/26/24 14:20 05/26/24 16:21 Kcl 20 Meq/D5/0.45% Sod Chl IV CONT 100 mls/hr .Q10H JUSTINO Administration Cefazolin Sodium 1 gm in 50 mls @ 100 mls/hr 05/26/24 20:00 05/27/24 04:43 Ancef 1 Gm/Ns 50 Ml IVPB 05/27/24 12:29 100 mls/hr Q8H JUSTINO Administration Metronidazole 500 mg in 100 mls @ 100 mls/hr 05/26/24 22:00 05/26/24 22:54 Flagyl 500 Mg/Iso Soln 100 Ml IVPB 100 mls/hr Q8HR JUSTINO Administration Ketorolac Tromethamine 15 mg 05/26/24 14:30 05/27/24 04:43 Ketorolac 15 Mg/Ml Vial (*Bkc) IV PUSH 15 mg Q8H PRN Administration Pain Rated 5 or Less Morphine Sulfate 2 mg 05/26/24 14:17 05/26/24 16:27 Morphine Sulfate (*Crx) 2 Mg/Ml Inj IV PUSH 2 mg Q2H PRN Administration Pain Rated 6 or Greater Ondansetron HCl 4 mg 05/26/24 14:17 05/26/24 18:01 Ondansetron Inj 4 Mg/2 Ml Vial IV PUSH 4 mg Q6H PRN Administration Nausea And Vomiting Simethicone 80 mg 05/26/24 21:00 05/26/24 22:54 Simethicone 80 Mg Tab.Chew PO 80 mg QID JUSTION Administration Zolpidem Tartrate 5 mg 05/26/24 14:17 Zolpidem Tartrate (*Crx) 5 Mg Tablet PO HS PRN Insomnia
[2024-05-27 07:35] VITALS: PULSE 67; O2SAT 98
[2024-05-27 07:36] VITALS: BP 114/64; PULSE 62
[2024-05-27 07:40] VITALS: RESP 18; TEMP 36.5
[2024-05-27] MEDS: HYDROcodone/acetaminophen (*CRX) 5-325 MG TABLET 1 TAB PO (07:42)
[2024-05-27] MEDS: DOCUSATE SODIUM 100 MG CAPSULE PO (07:42)
--- NOTE | 2024-05-27 08:08 | WPDANESPN ---
Anes - Prog Note Post-Op Date/Time: 05/27/24 08:08 Cardiovascular status: normal Respiratory status: normal Airway patency: baseline Mental status: baseline Post-Op hydration status: normal Vital Signs: Last Vital Signs Temp 36.5 C 05/27/24 07:40 Pulse 62 05/27/24 07:36 Resp 18 05/27/24 07:40 BP 114/64 05/27/24 07:36 Pulse Ox 98 05/27/24 07:35 O2 Del Method Room Air 05/27/24 07:40 O2 Flow Rate 8 05/26/24 14:45 Pain Score (VAS): 04/28 I/O: Intake & Output 05/26/24 05/27/24 05/27/24 23:59 07:59 15:59 Intake Total 290 240 Output Total 600 800 Balance -310 -560 Post-procedural complaints: none Patient Feedback: Patient satisfied with anesthetic care.
[2024-05-27] MEDS: metroNIDAZOLE 500 MG/ISO 100ML 500 MG/100 ML BAG 100 MG IVPB (08:48)
[2024-05-27] MEDS: ENOXAPARIN 30 MG/0.3 ML SYRINGE SUB-Q (08:57)
[2024-05-27] MEDS: SIMETHICONE 80 MG TAB.CHEW PO (08:57)
== END 2024-05-27 11:26 | disposition home or self-care (01) ==
LOC: ANHSURGERY 12:42 → ANHOBPP 15:53
PROVIDERS: Obstetrics & Gynecology; Visit Provider Urology
PROC: (CPT 57425; principal; 2024-05-26 12:00)
PROC: (CPT 58542; 2024-05-26 12:00)
DX: N81.2 Incomplete uterovaginal prolapse (principal); N39.3 Stress incontinence (female) (male); N73.6 Female pelvic peritoneal adhesions (postinfective)
CPT/HCPCS: 57425; 57288; 58542; S2900 ×2; 88307; 99199; A9270; C1771; C1781; J0690; J1100; J1171; J1650; J1836; J1885; J2003; J2250; J2270; J2405; J2704; J3010; J3480; J7030; J7120